=== PATIENT | male | born 1980 | race Caucasian/White ===

== ENCOUNTER 2017-10-08 04:32 | Emergency (ER) | payer BC, OTHER ==
--- NOTE | 2017-10-08 05:21 | EDM.PDOC ---
ED HPI GENERAL MEDICAL PROBLEM - General Chief Complaint: Lower Extremity Injury/Pain Stated Complaint: Numbness in leg Time Seen by Provider: 10/08/17 04:45 Source of Information: Reports: Patient History Limitations: Reports: No Limitations - History of Present Illness INITIAL COMMENTS - FREE TEXT/NARRATIVE: 37 YO WM presents to ER complaining of numbness and pain in his right leg which began immediately upon waking at 3:30am today. Pt reports it felt like his leg was asleep and then upon standing felt pain. 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 Pt denies any swelling in leg, denies any back pain, shortness of breath, palpitations or chest pain. Pt is afebrile. Onset: Sudden Duration: Hour(s): (1) Location: Reports: Lower Extremity, Right Quality: Reports: Ache Severity: Severe Improves with: Reports: None Worsens with: Reports: None Associated Symptoms: Reports: No Other Symptoms - Related Data Allergies Allergy/AdvReac Type Severity Reaction Status Date / Time acetaminophen Allergy Airway Verified 10/08/17 04:36 [From Darvocet-N] Tightness amoxicillin Allergy Anaphylactic Verified 10/08/17 04:36 Shock hydrocodone bitartrate Allergy Airway Verified 10/08/17 04:36 [From Lorcet (hydrocodone)] Tightness propoxyphene napsylate Allergy Airway Verified 10/08/17 04:36 [From Darvocet-N] Tightness Sulfa (Sulfonamide Allergy Anaphylactic Verified 10/08/17 04:36 Antibiotics) Shock venom-honey bee Allergy Airway Verified 10/08/17 04:36 [bee venom (honey bee)] Tightness Home Meds: Home Meds DULoxetine HCl [Cymbalta] 60 mg PO DAILY 02/16/16 [History] Fluticasone/Vilanterol [Breo Ellipta 200-25 Mcg INH] 1 puff INH DAILY 02/16/16 [ History] Lisinopril/Hydrochlorothiazide [Lisinopril-Hctz 20-12.5 mg Tab] 20 mg PO DAILY 02/16/16 [History] Prednisone [IJD: Prednisone] 10 mg PO DAILY 02/16/16 [History] Rivaroxaban [Xarelto] 20 mg PO DAILY 02/16/16 [History] azaTHIOprine [Imuran] 100 mg PO BID 02/16/16 [History] ARIPiprazole [Abilify] 5 mg PO DAILY 10/08/17 [History] Acetaminophen [Pain Reliever] 1,000 mg PO Q6H PRN 10/08/17 [History] Albuterol Sulfate [Proair Hfa] 2 puff PO Q4H PRN 10/08/17 [History] Albuterol [Proventil Neb Soln] 1 ampule PO QID PRN 10/08/17 [History] DULoxetine [Cymbalta] 120 mg PO DAILY 10/08/17 [History] EPINEPHrine [Epinephrine] 1 injection IM ONETIME PRN 10/08/17 [History] Furosemide [Lasix] 20 mg PO DAILY 10/08/17 [History] Magnesium Oxide 800 mg PO DAILY 10/08/17 [History] Minocycline [Minocin] 100 mg PO BID 10/08/17 [History] Multivitamin [Multivitamins] 1 tab PO DAILY 10/08/17 [History] Omeprazole 40 cap PO DAILY 10/08/17 [History] Phentermine HCl 3.7 mg PO DAILY 10/08/17 [History] Potassium Chloride 20 meq PO DAILY 10/08/17 [History] Umeclidinium [place] [Incruse Ellipta] 1 puff PO DAILY 10/08/17 [History] amLODIPine Besylate [Norvasc] 5 mg PO DAILY 10/08/17 [History] Past Medical History HEENT History: Reports: None Cardiovascular History: Reports: Blood Clots/VTE/DVT, Hypertension, Other (See Below) Other Cardiovascular History: clot 3 times in the left leg Respiratory History: Reports: Asthma, Sleep Apnea Gastrointestinal History: Reports: GERD Genitourinary History: Reports: None Musculoskeletal History: Reports: Arthritis, SLE Neurological History: Reports: Concussion, Head Trauma Psychiatric History: Reports: Depression, Panic Attack Endocrine/Metabolic History: Reports: None Hematologic History: Reports: Anticoagulation Therapy, Blood Transfusion(s) Immunologic History: Reports: SLE Oncologic (Cancer) History: Reports: None Dermatologic History: Reports: None - Infectious Disease History Infectious Disease History: Reports: Chicken Pox, Influenza, Pertussis ( Whooping Cough) - Past Surgical History Head Surgeries/Procedures: Reports: None HEENT Surgical History: Reports: None Cardiovascular Surgical History: Reports: None Respiratory Surgical History: Reports: None GI Surgical History: Reports: None Male Surgical History: Reports: None Endocrine Surgical History: Reports: None Musculoskeletal Surgical History: Reports: None Oncologic Surgical History: Reports: None Dermatological Surgical History: Reports: None Social & Family History - Tobacco Use Smoking Status *Q: Never Smoker - Recreational Drug Use Recreational Drug Use: No Review of Systems - Review of Systems Review Of Systems: See Below Constitutional: Reports: No Symptoms Eyes: Reports: No Symptoms Ears: Reports: No Symptoms Nose: Reports: No Symptoms Mouth/Throat: Reports: No Symptoms Respiratory: Reports: No Symptoms Cardiovascular: Reports: No Symptoms GI/Abdominal: Reports: No Symptoms Genitourinary: Reports: No Symptoms Musculoskeletal: Reports: Leg Pain Skin: Reports: No Symptoms Neurological: Reports: No Symptoms Psychiatric: Reports: No Symptoms ED EXAM, GENERAL - Physical Exam Exam: See Below Exam Limited By: No Limitations General Appearance: Alert, WD/WN, No Apparent Distress Head: Atraumatic, Normocephalic Neck: Normal Inspection, Supple, Non-Tender, Full Range of Motion Respiratory/Chest: No Respiratory Distress, Lungs Clear, Normal Breath Sounds, No Accessory Muscle Use, Chest Non-Tender Cardiovascular: Regular Rate, Rhythm, No Edema, No Gallop, No JVD, No Murmur, No Rub. No: Normal Peripheral Pulses Peripheral Pulses: 0: Posterior Tibial (R), Dorsalis Pedis (R), 3+: Femoral (R) GI/Abdominal: Normal Bowel Sounds, Soft, Non-Tender, No Organomegaly, No Distention, No Abnormal Bruit, No Mass Back Exam: Normal Inspection, Full Range of Motion, NT Extremities: Slow Capillary Refill, Leg Pain, Mottled Neurological: Alert, Oriented, CN II-XII Intact, Normal Cognition, Normal Gait, Normal Reflexes, No Motor/Sensory Deficits Psychiatric: Normal Affect, Normal Mood Skin Exam: Warm, Dry, Intact, Normal Color, No Rash Course - Orders/Labs/Meds Orders: Active Orders 24 hr Category Date Time Status HYDROmorphone [Dilaudid] Med 10/08/17 05:39 Once 1 mg IVPUSH ONETIME ONE Ondansetron [Zofran] Med 10/08/17 05:39 Once 4 mg IVPUSH ONETIME ONE - Re-Assessments/Exams Free Text/Narrative Re-Assessment/Exam: 10/08/17 05:36 attempted to do LYNN at bedside- positive femoral pulse but absent posterior tibial and dorsalis pedis pulses. Discussed case with Dr Eagle (Vascular surgery ) who requested pt be transferred immediately to [facility] for further evaluation and treatment. Departure - Departure Time of Disposition: 05:40 Disposition: DC/Tfer to Acute Hospital 02 Condition: Critical Clinical Impression: Vascular complications of other vessels, Peripheral vascular complications - Discharge Information Forms: ED Department Discharge, Interfacility Transfer EMTALA - My Orders Last 24 Hours: My Active Orders 10/08/17 05:39 HYDROmorphone [Dilaudid] 1 mg IVPUSH ONETIME ONE Ondansetron [Zofran] 4 mg IVPUSH ONETIME ONE - Assessment/Plan Last 24 Hours: My Active Orders 10/08/17 05:39 HYDROmorphone [Dilaudid] 1 mg IVPUSH ONETIME ONE Ondansetron [Zofran] 4 mg IVPUSH ONETIME ONE Assessment:: 1. absent lower extremity pulses in right leg below the knee suspecting vascular /arterial compromise. Plan: 1. severe right lower extremity peripheral vascular disease/compromise
[2017-10-08] MEDS ORDERED: Ondansetron 4 MG/2 ML SDV IVPUSH ONE (05:39)
[2017-10-08] MEDS ORDERED: HYDROmorphone 1 MG/ML Syringe IVPUSH ONE (05:39)
[2017-10-08 06:07] VITALS: BP 118/63
== END 2017-10-08 06:15 ==
LOC: KA.ED 04:32
DX: I99.8 Other disorder of circulatory system (principal); K21.9 Gastro-esophageal reflux disease without esophagitis; I10 Essential (primary) hypertension; Z88.1 Allergy status to other antibiotic agents; Z88.8 Allergy status to other drugs, medicaments and biological substances; Z88.5 Allergy status to narcotic agent; Z88.2 Allergy status to sulfonamides; Z91.030 Bee allergy status; Z79.899 Other long term (current) drug therapy
CPT/HCPCS: 96374; 96375; 99285; J1170; J2405

== ENCOUNTER 2017-11-28 12:12 | Inpatient (IN) | payer OTHER ==
--- NOTE | 2017-11-28 12:36 | EDM.PDOC ---
ED HPI GENERAL MEDICAL PROBLEM - General Chief Complaint: Cardiovascular Problem Stated Complaint: CHEST PAIN Time Seen by Provider: 11/28/17 12:18 Source of Information: Reports: Patient History Limitations: Reports: No Limitations - History of Present Illness INITIAL COMMENTS - FREE TEXT/NARRATIVE: Patient is a 37-year-old gentleman who presents to the emergency department this morning via EMS for complaint of chest pain. Patient was seen at [facility] for chest pain and sent to the ER. 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 Shortly after he developed left-sided chest pain that was described as pressure. Dizziness resolved pressure persisted. Patient decided to present to the clinic. At the clinic patient was found to be in atrial fibrillation and a heart rate in the 140s. Patient did have PFO procedure [address] [facility]. Patient states that the procedure was uneventful and it was a one day stay. Patient is currently on Coumadin post procedure. Patient denies shortness of breath, fever , headache, head injury, nausea, vomiting, diarrhea, taking caffeine products, or drugs. Onset: Today Onset Date: 11/28/17 Onset Time: 09:30 Duration: Minutes: Location: Reports: Chest Quality: Reports: Pressure Severity: Mild Improves with: Reports: Other (Spontaneously) Context: Reports: Other (At rest) Associated Symptoms: Reports: Diaphoresis - Related Data Allergies Allergy/AdvReac Type Severity Reaction Status Date / Time acetaminophen Allergy Airway Verified 11/28/17 12:36 [From Darvocet-N] Tightness amoxicillin Allergy Anaphylactic Verified 11/28/17 12:36 Shock hydrocodone bitartrate Allergy Airway Verified 11/28/17 12:36 [From Lorcet (hydrocodone)] Tightness propoxyphene napsylate Allergy Airway Verified 11/28/17 12:36 [From Darvocet-N] Tightness rituximab [From Rituxan] Allergy Weakness Verified 11/28/17 12:42 Sulfa (Sulfonamide Allergy Anaphylactic Verified 11/28/17 12:36 Antibiotics) Shock venom-honey bee Allergy Airway Verified 11/28/17 12:36 [bee venom (honey bee)] Tightness Home Meds: Home Meds DULoxetine HCl [Cymbalta] 60 mg PO DAILY 02/16/16 [History] Fluticasone/Vilanterol [Breo Ellipta 200-25 Mcg INH] 1 puff INH DAILY 02/16/16 [ History] Lisinopril/Hydrochlorothiazide [Lisinopril-Hctz 20-12.5 mg Tab] 20 mg PO DAILY 02/16/16 [History] Prednisone [IJD: Prednisone] 10 mg PO DAILY 02/16/16 [History] Rivaroxaban [Xarelto] 20 mg PO DAILY 02/16/16 [History] azaTHIOprine [Imuran] 100 mg PO BID 02/16/16 [History] ARIPiprazole [Abilify] 5 mg PO DAILY 10/08/17 [History] Acetaminophen [Pain Reliever] 1,000 mg PO Q6H PRN 10/08/17 [History] Albuterol Sulfate [Proair Hfa] 2 puff PO Q4H PRN 10/08/17 [History] Albuterol [Proventil Neb Soln] 1 ampule PO QID PRN 10/08/17 [History] DULoxetine [Cymbalta] 120 mg PO DAILY 10/08/17 [History] EPINEPHrine [Epinephrine] 1 injection IM ONETIME PRN 10/08/17 [History] Furosemide [Lasix] 20 mg PO DAILY 10/08/17 [History] Magnesium Oxide 800 mg PO DAILY 10/08/17 [History] Minocycline [Minocin] 100 mg PO BID 10/08/17 [History] Multivitamin [Multivitamins] 1 tab PO DAILY 10/08/17 [History] Omeprazole 40 cap PO DAILY 10/08/17 [History] Phentermine HCl 3.7 mg PO DAILY 10/08/17 [History] Potassium Chloride 20 meq PO DAILY 10/08/17 [History] Umeclidinium [place] [Incruse Ellipta] 1 puff PO DAILY 10/08/17 [History] amLODIPine Besylate [Norvasc] 5 mg PO DAILY 10/08/17 [History] Past Medical History HEENT History: Reports: None Cardiovascular History: Reports: Blood Clots/VTE/DVT, Hypertension, Other (See Below) Other Cardiovascular History: clot 3 times in the left leg Respiratory History: Reports: Asthma, Sleep Apnea Gastrointestinal History: Reports: GERD Genitourinary History: Reports: None Musculoskeletal History: Reports: Arthritis, SLE Neurological History: Reports: Concussion, Head Trauma Psychiatric History: Reports: Depression, Panic Attack Endocrine/Metabolic History: Reports: None Hematologic History: Reports: Anticoagulation Therapy, Blood Transfusion(s) Immunologic History: Reports: SLE Oncologic (Cancer) History: Reports: None Dermatologic History: Reports: None - Infectious Disease History Infectious Disease History: Reports: Chicken Pox, Influenza, Pertussis ( Whooping Cough) - Past Surgical History Head Surgeries/Procedures: Reports: None HEENT Surgical History: Reports: None Cardiovascular Surgical History: Reports: None Respiratory Surgical History: Reports: None GI Surgical History: Reports: None Male Surgical History: Reports: None Endocrine Surgical History: Reports: None Musculoskeletal Surgical History: Reports: None Oncologic Surgical History: Reports: None Dermatological Surgical History: Reports: None Social & Family History - Tobacco Use Smoking Status *Q: Never Smoker Second Hand Smoke Exposure: No - Caffeine Use Caffeine Use: Reports: Coffee, Energy Drinks, Soda - Alcohol Use Days Per Week of Alcohol Use: 1 Number of Drinks Per Day: 1 Total Drinks Per Week: 1 - Recreational Drug Use Recreational Drug Use: No ED ROS GENERAL - Review of Systems Review Of Systems: ROS reveals no pertinent complaints other than HPI. Constitutional: Reports: No Symptoms HEENT: Reports: No Symptoms Respiratory: Reports: No Symptoms Cardiovascular: Reports: Chest Pain, Lightheadedness, Palpitations Endocrine: Reports: No Symptoms GI/Abdominal: Reports: No Symptoms : Reports: No Symptoms Musculoskeletal: Reports: No Symptoms Skin: Reports: No Symptoms Neurological: Reports: No Symptoms Psychiatric: Reports: No Symptoms Hematologic/Lymphatic: Reports: No Symptoms Immunologic: Reports: No Symptoms ED EXAM, GENERAL - Physical Exam Exam: See Below Exam Limited By: No Limitations General Appearance: Alert, WD/WN, No Apparent Distress Nose: Normal Inspection, Normal Mucosa, No Blood Throat/Mouth: Normal Inspection, Normal Oropharynx, No Airway Compromise Head: Atraumatic, Normocephalic Neck: Normal Inspection. No: Carotid Bruit, Lymphadenopathy (L), Lymphadenopathy (R) Respiratory/Chest: No Respiratory Distress, Lungs Clear, Normal Breath Sounds Cardiovascular: Extra Beats, Irregularly Irregular GI/Abdominal: Normal Bowel Sounds, Soft, Non-Tender Back Exam: Normal Inspection Extremities: Normal Inspection, No Pedal Edema Neurological: Alert, Oriented, Normal Cognition Psychiatric: Normal Affect, Normal Mood Skin Exam: Warm, Dry, Intact, Normal Color, No Rash EKG INTERPRETATION EKG Date: 11/28/17 Time: 12:20 Rhythm: A-Fib Rate (Beats/Min): 153 [place]: Normal QRS: Normal ST-T: Normal QT: Normal Comparison: NA - No Prior EKG Course - Orders/Labs/Meds Orders: Active Orders 24 hr Category Date Time Status Cardiac Monitoring [RC] . DIRECTED Care 11/28/17 12:19 Ordered EKG Documentation Completion [RC] ASDIRECTED Care 11/28/17 12:22 Ordered Peripheral IV Care [RC] . DIRECTED Care 11/28/17 12:22 Ordered Chest 1V Frontal [CR] Stat Exams 11/28/17 12:20 Ordered CBC WITH AUTO DIFF [HEME] Stat Lab 11/28/17 12:18 Ordered COMPREHENSIVE METABOLIC PN,CMP [CHEM] Stat Lab 11/28/17 12:19 Ordered INR,PT,PROTHROMBIN TIME [COAG] Stat Lab 11/28/17 12:18 Ordered MAGNESIUM [CHEM] Stat Lab 11/28/17 12:18 Ordered PTT,PARTIAL THROMBOPLSTIN TIME [COAG] Stat Lab 11/28/17 12:18 Ordered TROPONIN I [CHEM] Stat Lab 11/28/17 12:18 Ordered Sodium Chloride 0.9% [Syrex Flush] Med 11/28/17 12:18 Ordered 5 ml FLUSH Q8HR PRN Peripheral IV Insertion Adult [OM.PC] Stat Oth 11/28/17 12:18 Ordered Saline Lock Insert [OM.PC] Stat Oth 11/28/17 12:18 Ordered EKG 12 Lead [EK] Stat Ther 11/28/17 12:20 Ordered Medication Orders Sodium Chloride (Syrex Flush) 5 ml FLUSH Q8HR PRN PRN Reason: Keep Vein Open Meds: Medications Generic Name Dose Route Start Last Admin Trade Name Freq PRN Reason Stop Dose Admin Sodium Chloride 5 ml 11/28/17 12:18 Syrex Flush FLUSH Q8HR PRN Keep Vein Open - Radiology Interpretation Free Text/Narrative:: Chest x-ray shows no acute cardiopulmonary process - Re-Assessments/Exams Free Text/Narrative Re-Assessment/Exam: 11/28/17 13:[address] Reyes, bias cutter helper at [facility]. Recommendation after reviewing EKGs was to start patient with 10 mg metoprolol IV for rate control. If successful, then patient will be started on 25 mg metoprolol by mouth every 6. Free Text/Narrative Re-Assessment/Exam: 11/28/17 14:10 Following administration of 5 mg metoprolol, patient heart rate did decrease to 100-105. However, blood pressure also decreased 80s over 60s. IV fluids are being administered. Heart rate increased to 120s to 130s again. 5 mg metoprolol was repeated 10 minutes later and heart rate came down to 105-110 and blood pressure again went to 80 over 60s. Discussed case with Dr. Leiva and he advised to change medication to Cardizem drip at 5 mg per hour. He will accept admission and follow patient. Departure - Departure Time of Disposition: 14:12 Disposition: Admitted As Inpatient 64 Condition: Fair Clinical Impression: New onset atrial fibrillation Referrals: PCP,Unknown [Ordering Only Provider] - Forms: ED Department Discharge - My Orders Last 24 Hours: My Active Orders 11/28/17 12:18 CBC WITH AUTO DIFF [HEME] Stat INR,PT,PROTHROMBIN TIME [COAG] Stat MAGNESIUM [CHEM] Stat PTT,PARTIAL THROMBOPLSTIN TIME [COAG] Stat TROPONIN I [CHEM] Stat Sodium Chloride 0.9% [Syrex Flush] 5 ml FLUSH Q8HR PRN Peripheral IV Insertion Adult [OM.PC] Stat Saline Lock Insert [OM.PC] Stat 11/28/17 12:19 Cardiac Monitoring [RC] . DIRECTED COMPREHENSIVE METABOLIC PN,CMP [CHEM] Stat 11/28/17 12:20 Chest 1V Frontal [CR] Stat EKG 12 Lead [EK] Stat 11/28/17 12:22 EKG Documentation Completion [RC] ASDIRECTED Peripheral IV Care [RC] . DIRECTED - Assessment/Plan Last 24 Hours: My Active Orders 11/28/17 12:18 CBC WITH AUTO DIFF [HEME] Stat INR,PT,PROTHROMBIN TIME [COAG] Stat MAGNESIUM [CHEM] Stat PTT,PARTIAL THROMBOPLSTIN TIME [COAG] Stat TROPONIN I [CHEM] Stat Sodium Chloride 0.9% [Syrex Flush] 5 ml FLUSH Q8HR PRN Peripheral IV Insertion Adult [OM.PC] Stat Saline Lock Insert [OM.PC] Stat 11/28/17 12:19 Cardiac Monitoring [RC] . DIRECTED COMPREHENSIVE METABOLIC PN,CMP [CHEM] Stat 11/28/17 12:20 Chest 1V Frontal [CR] Stat EKG 12 Lead [EK] Stat 11/28/17 12:22 EKG Documentation Completion [RC] ASDIRECTED Peripheral IV Care [RC] . DIRECTED Assessment:: Atrial fibrillation Plan: Admit inpatient to Dr. Leiva
[2017-11-28 13:13] LABS: CHLORIDE,CL 103 mmol/L (98-115); SODIUM,NA 138 mmol/L (136-145)
[2017-11-28] MEDS ORDERED: Sodium Chloride 0.9% 1,000 ML IV ONE (13:23)
[2017-11-28] MEDS ORDERED: Metoprolol Tartrate 5 MG/5 ML SDV IVPUSH ONE (13:31)
[2017-11-28] MEDS ORDERED: Diltiazem 125 MG in Sodium Chloride 0.9% 100 ML IV SCH ×2 (14:15→14:44)
[2017-11-28] MEDS ORDERED: Metoprolol Tartrate 25 MG Tab PO ONE ×2 (14:31→20:51)
[2017-11-28] MEDS ORDERED: EPINEPHrine 1:10,000 1 MG/10 ML Syringe IVPUSH PRN (15:00)
[2017-11-28] MEDS ORDERED: Nitroglycerin 0.4 MG Tab.SL SL PRN (15:00)
[2017-11-28] MEDS ORDERED: Lidocaine 2% 100 MG/5 ML Syringe IVPUSH PRN (15:00)
[2017-11-28] MEDS ORDERED: Atropine 0.1 MG/ML 10 ML Syringe IVPUSH PRN (15:00)
[2017-11-28] MEDS ORDERED: Albuterol 0.083% 2.5 MG/3 ML Neb Soln INH PRN (15:14)
[2017-11-28] MEDS ORDERED: EPINEPHrine 0.3 MG/0.3 ML Pen Autoinjector IM PRN (15:14)
[2017-11-28] MEDS ORDERED: Acetaminophen 500 MG Tab PO PRN (15:14)
[2017-11-28] MEDS ORDERED: Warfarin 5 MG Tab PO SCH ×3 (15:15→16:42)
[2017-11-28] MEDS ORDERED: Sodium Chloride 0.9% 500 ML IV SCH (15:15)
[2017-11-28] MEDS ORDERED: EPINEPHrine 1 MG/ML SDV IM PRN (16:59)
[2017-11-28] MEDS ORDERED: Warfarin 5 MG Tab PO ONE (18:00)
[2017-11-28] MEDS: Clopidogrel 75 MG Tab PO SCH (18:02)
[2017-11-29] MEDS: Omeprazole 20 MG Cap.CR PO SCH (07:42)
--- NOTE | 2017-11-29 08:00 | PN ---
11/28/2017PATIENT NAME: DOMINIC DENNIS PATIENT PROFILE: The patient is a 37-year-old gentleman who presented to the emergency room this afternoon, he is being brought by via EMS because of chest pain. The patient was seen in the [facility] for the same complaint and sent to the emergency room. 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 Shortly after that he developed left-sided chest pain that was described as pressure. The dizziness has resolved and the pressure persisted. He presented to the clinic. The patient was found to be in atrial fibrillation with a heart rate of about 140. The patient did have a patent foramen ovale procedure performed three weeks ago at [facility]. He stated that the procedure was uneventful. He has been on Coumadin after the procedure. He denies having any shortness of breath, fever, headaches, neck pain, nausea, vomiting, diarrhea. He denies taking caffeine products, but he is on phentermine. ALLERGIES: Amoxicillin, clindamycin, hydrocodone, propoxyphene, and sulfa drugs. Also Rituxan. PAST MEDICAL HISTORY: The patient's past history is positive for systemic lupus erythematosus, obstructive sleep apnea, post-thrombotic syndrome, mood disorder, long-term use of anticoagulant therapy, mild intermittent asthma, obesity, seronegative rheumatoid arthritis, nephrotic syndrome, antiphospholipid antibody syndrome, pulmonary embolism, embolism of femoral artery, history of embolectomy, and status post patent foramen ovale closure. MEDICATIONS: Include Imuran 50 mg two tablets that is 100 mg two times, Plavix 75 mg once a day, Minocin 100 mg once a day, warfarin 7 mg daily and 10 mg on Wednesdays, aspirin 81 mg chewable daily, Abilify 5 mg one tab daily, duloxetine which is Cymbalta two capsules daily 60 mg total 120 mg, potassium chloride 20 mEq once a day, lisinopril 20 mg once a day, Lasix 20 once a day, omeprazole 40 once a day, Tylenol 1000 mg up to six times a day. SURGICAL HISTORY: The patient has had an orchiectomy, colonoscopy, circumcision, vascular bypass. The patient has been followed by Rigoberto Fisher MD, pediatric pile fabric knitter at [facility]. Also, Emmanuel Perkins PA-C. The patient has had a flu vaccine in 07/28/2017. SOCIAL HISTORY: Tobacco use, never smoked. Secondhand smoke, negative ever. Caffeine no. Alcohol drinks one day of the week. Number of drinks once per day. Two two drinks per week are once a week. REVIEW OF SYSTEMS: HEAD AND NECK: The patient does complain of mild headache, 3/10. EYES, EARS, NOSE, THROAT: No complaints. NECK: No complaints. CHEST: See present history. Low-grade chest pressure. LUNGS: No complaints or dyspnea. ABDOMEN: No complaints. EXTREMITIES: No complaints. NEUROLOGIC: No complaints. UROLOGICAL: No complaints. PHYSICAL EXAMINATION: GENERAL: Reveals a very pleasant gentleman who appears to be comfortable and lying in the bed. VITAL SIGNS: His vital signs are as follows. The pulse rate is 64, blood pressure 130/68, oxygen saturation 100%, temperature 97.7. HEAD: Negative. EYES: Normal. EARS, NOSE, THROAT: Normal. NECK: Supple. Full range of motion. No midline swellings. LUNGS: Clear to percussion and auscultation. HEART: Irregular rhythm. Grade 1/6 systolic murmur at the apex. ABDOMEN: Soft. No masses. No tenderness. EXTREMITIES: Normal. NEUROLOGIC: Intact. STUDIES: Chest x-ray shows normal heart size and clear lungs. His hemoglobin is 14.6, white count 7000. His INR is 2.6, PT is 26.1. Normal electrolytes. BUN is slightly high at 29, creatinine 1.09, total protein 8.6. His troponin levels are negative. FINAL DIAGNOSES: Atrial fibrillation with a rapid ventricular response. The patient did receive IV metoprolol 5 mg x2 and also oral metoprolol tartrate 12.5 mg. He is going to receive an extra dose now. He is on a Cardizem drip. His heart rate is running between 80 and 90. He still has slight chest pain. We will repeat the troponin level at this time. We will also give an extra metoprolol dosage in a few hours if the heart rate is still rapid. We will watch his blood pressures very carefully. Continue other medications as before. Re-evaluate in the a.m. Recent PFO closure. H/O PE and DVT. See other diagnosis. /[id number]/MODL MTDD
[2017-11-29] MEDS ORDERED: Warfarin 5 MG Tab PO SCH ×2 (09:00→18:00)
[2017-11-29] MEDS: Sodium Chloride 0.9% 5 ML Syringe FLUSH PRN ×2 (09:00→20:51)
[2017-11-29] MEDS: predniSONE 10 MG Tab PO SCH (09:00)
[2017-11-29] MEDS ORDERED: Lisinopril 20 MG Tab PO SCH (09:00)
[2017-11-29] MEDS: DULoxetine 30 MG Cap PO SCH (09:01)
[2017-11-29] MEDS: ARIPiprazole 5 MG Tab PO SCH (09:01)
[2017-11-29] MEDS: Potassium Chloride 20 MEQ Tab.ER PO SCH (09:03)
[2017-11-29] MEDS: Magnesium Oxide 500 MG Tab PO SCH (09:04)
[2017-11-29] MEDS: Multivitamins with Minerals/Iron/Folic Acid/Lycopene Tab PO SCH (09:04)
[2017-11-29] MEDS: Furosemide 20 MG Tab PO SCH (09:04)
[2017-11-29] MEDS: Fluticasone/Vilanterol 200 MCG/25 MCG Inhalation Powder Kit of 14 IH SCH (09:33)
[2017-11-29] MEDS: Umeclidinium Bromide 62.5 MCG 30 Puff Inhaler IH SCH (09:37)
[2017-11-29] MEDS ORDERED: Digoxin 500 MCG/2 ML Amp IVPUSH ONE ×2 (11:26→12:53)
--- NOTE | 2017-11-29 13:32 | PN ---
11/29/2017 PATIENT NAME: DOMINIC DENNIS CHIEF COMPLAINT: Breakthrough tachycardia with some mild chest pain yesterday. BRIEF HISTORY: This 37-year-old gentleman who was initially admitted to the ED due to chest pain. He was seen at the [facility] and was sent over to the ED due to atrial fibrillation with RVR. Shortly after that he developed a left- sided chest pain that was described as somewhat of a pressure in his chest. He had some palpitations along with dizziness. He has atrial fibrillation. Heart rate in the [facility] was around 140s. The patient did have a successful PFO closure about 10 mm three weeks ago at [facility]. He had been on anticoagulation for history of DVT. He is currently on Coumadin therapy. He has been in the hospital acute care status, receiving IV medications for RVR. Update today: Throughout the night, the patient's heart rate was 80s to 90s; however, this morning on rounds, he had been having significant breakthrough at times up to 130 to 160, usually upon getting to the bathroom, however, seems to be fairly stable in fairly good rate control around 100 to 110, lying in bed. He denies any chest pain. Denies any shortness of breath. However, he has been having some low blood pressures due to beta-laurence therapy and calcium channel laurence therapy. He had a diltiazem drip last night that was discontinued due to the hypotension. PHYSICAL EXAMINATION: VITAL SIGNS: Blood pressure 91/53, mean arterial pressure is minimal at 65, asymptomatic. Temperature 98.1, heart rates vacillate between 80s and breakthrough to 130s depending on movement. Respiratory rate 16, O2 sats 98% on room air. Lungs are clear to auscultation. CV: Rapid heart rate at times. No murmur. Chest x-ray, normal heart size. Clear lungs. Skin: Significant bruising which is chronic for the patient's lower extremities. White count 7.0, hematocrit and hemoglobin normal. INR 2.7. Troponin x2 normal. BNP slightly elevated at 266. IMPRESSION: 1. Atrial fibrillation, acute. Doubtful mural thrombus due to chronic anticoagulation due to history of DVT. He has therapeutic INR. At this time, rate control strategy for acute tachycardia, beta laurence 12.5 mg p.o., metoprolol tartrate b.i.d. with holding parameters. Digoxin 125 mcg x1 now. Consider amiodarone if refractory tachycardia. Echocardiogram dated 11/09/2017 immediately after successful PFO closure, indicates ejection fraction 55%. No evidence of atrial shunt. Mildly dilated left ventricle. No left ventricular regional wall abnormalities. Trivial aortic regurgitation, moderate mitral regurgitation, left atrium normal size. No evidence of atrial shunt. No pulmonary artery hypertension. 2. History of acute DVT. He is on anticoagulation, co-benefit due to atrial fibrillation. 3. Intermittent asthma, well controlled, stable. 4. Obesity. 5. Antiphospholipid antibody syndrome. 6. History of obstructive sleep apnea. 7. History of hypertension. 8. Systemic lupus erythematosus. OVERALL PLAN: Continue with pharmacological measures to reduce heart rate and hopeful for a pharmacological cardioversion. We will consider electrical cardioversion. The patient may benefit from ongoing diltiazem and beta laurence. Possible amiodarone. Fully coagulated at this time. Monitor for any hemodynamic instability. /[id number]/MODL
[2017-11-29] MEDS: Metoprolol Tartrate 25 MG Tab PO SCH ×2 (13:42→20:50)
[2017-11-29] MEDS ORDERED: Metoprolol Tartrate 25 MG Tab PO ONE (17:00)
[2017-11-29] MEDS ORDERED: Digoxin 125 MCG Tab PO ONE (17:00)
[2017-11-29] MEDS: Clopidogrel 75 MG Tab PO SCH (18:10)
[2017-11-30] MEDS: Omeprazole 20 MG Cap.CR PO SCH (06:34)
[2017-11-30] MEDS: predniSONE 10 MG Tab PO SCH (07:56)
[2017-11-30] MEDS: Fluticasone/Vilanterol 200 MCG/25 MCG Inhalation Powder Kit of 14 IH SCH (08:31)
[2017-11-30] MEDS: Umeclidinium Bromide 62.5 MCG 30 Puff Inhaler IH SCH (08:36)
[2017-11-30] MEDS: ARIPiprazole 5 MG Tab PO SCH (09:41)
[2017-11-30] MEDS: Multivitamins with Minerals/Iron/Folic Acid/Lycopene Tab PO SCH (09:41)
[2017-11-30] MEDS: DULoxetine 30 MG Cap PO SCH (09:41)
[2017-11-30] MEDS: Potassium Chloride 20 MEQ Tab.ER PO SCH (09:42)
[2017-11-30] MEDS: Furosemide 20 MG Tab PO SCH (09:42)
[2017-11-30] MEDS: Magnesium Oxide 500 MG Tab PO SCH (09:43)
[2017-11-30] MEDS ORDERED: Metoprolol Tartrate 25 MG Tab PO SCH (11:03)
[2017-11-30] MEDS: Metoprolol Tartrate 25 MG Tab PO SCH ×3 (11:16→20:23)
[2017-11-30] MEDS ORDERED: Sodium Chloride 0.9% 500 ML IV ONE (12:00)
--- NOTE | 2017-11-30 13:16 | PN ---
11/30/2017 PATIENT NAME: DOMINIC DENNIS Update, spontaneous chemical conversion to SR afternoon of November 29, however, he has been having breakthrough sinus tachycardia, ongoing asymptomatic BP. HISTORY: A 37-year-old gentleman initially admitted to the ED due to chest pain. He was seen at [facility] due to chest pain. He was noted and assumed to have atrial fibrillation, RVR. He was sent to the [facility], admitted. He had did have some palpitations along with symptomatic dizziness. His heart rate was around 140 on admission. He did have successful PFO closure, which was quite large, approximately 10 mm about three weeks ago at [facility]. He had been on anticoagulation for history of DVT. He was actually on factor Xa inhibitor for a couple of years, however, he did have ongoing DVTs despite Xarelto, and so he had been on Coumadin thereafter. 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 Telemetry reading overnight. NSR with breakthrough ST upon minor activity PHYSICAL EXAMINATION: BMI is 34. CONSTITUTIONAL: No chest pain, slept well, no palpitations VITAL SIGNS: Blood pressure 105/68, MAP 78. CV: 80s and regular. S1, S2. LUNGS: CTA. No rales or rhonchi noted. GI: Soft. Good bowel tones. LABS: White count 7.0, hemoglobin 14.6, hematocrit 45.2. INR is 3.0. Digoxin level was low at 0.20. Troponin negative x2. BNP slightly elevated at 266. IMPRESSION: 1. Atrial fibrillation with spontaneous conversion to sinus rhythm. CHADS2- VASc score is 3, chronic anticoagulation. INR 3.0. At this time, rate control strategy, however, likely will need electrophysiology for possible ablation, especially if patient does not remain in sinus rhythm. Increase beta-laurence to 25 mg p.o. b.i.d. Holding parameters; MAP below 68. ECHO dated 11/09/2017 immediately after successful PFO closure indicating EF 55. No evidence of atrial shunting, did have some mild dilated left ventricle. No ventricular regional wall abnormalities, did have some trivial aortic regurgitation, moderate mitral regurgitation, left atrium normal. 2. History of acute deep venous thrombosis, currently on anticoagulation, co- benefit due to atrial fib history. 3. History of clotting factor disorder. 4. Intermittent asthma, well controlled and stable. 5. Obesity. 6. History of obstructive sleep apnea. 7. History of hypertension. 8. Systemic lupus erythematosus. OVERALL PLAN: Will remain in cardiac status with telemetry right now. Increase his beta laurence, titrate with holding parameters. Ambulation to every 2 hours around the briskly to assess for any AV charles response. Most likely anticipate discharge in a.m. /[id number]/MODL MTDD
[2017-11-30] MEDS: Clopidogrel 75 MG Tab PO SCH (17:54)
[2017-11-30] MEDS ORDERED: Warfarin 5 MG Tab PO SCH (18:00)
[2017-11-30] MEDS ORDERED: Warfarin 5 MG Tab PO ONE (18:00)
[2017-12-01 06:57] VITALS: BP 104/68
[2017-12-01] MEDS: Omeprazole 20 MG Cap.CR PO SCH (07:29)
[2017-12-01] MEDS: predniSONE 10 MG Tab PO SCH (07:30)
[2017-12-01 07:55] LABS: CHLORIDE,CL 105 mmol/L (98-115); SODIUM,NA 140 mmol/L (136-145)
[2017-12-01] MEDS: Fluticasone/Vilanterol 200 MCG/25 MCG Inhalation Powder Kit of 14 IH SCH (08:44)
[2017-12-01] MEDS: Umeclidinium Bromide 62.5 MCG 30 Puff Inhaler IH SCH (08:49)
[2017-12-01] MEDS: ARIPiprazole 5 MG Tab PO SCH (09:31)
[2017-12-01] MEDS: Multivitamins with Minerals/Iron/Folic Acid/Lycopene Tab PO SCH (09:31)
[2017-12-01] MEDS: DULoxetine 30 MG Cap PO SCH (09:32)
[2017-12-01] MEDS: Potassium Chloride 20 MEQ Tab.ER PO SCH (09:33)
[2017-12-01] MEDS: Magnesium Oxide 500 MG Tab PO SCH (09:33)
[2017-12-01] MEDS: Furosemide 20 MG Tab PO SCH (09:35)
[2017-12-01] MEDS: Metoprolol Tartrate 25 MG Tab PO SCH (09:36)
--- NOTE | 2017-12-01 10:41 | PCM.DCSUM1 ---
Discharge Summary - Hospital Course Free Text/Narrative:: Date of admission: 11/28/17 Date of discharge: 12/01/17 Admission diagnoses: 1. Atrial fibrillation with rapid ventricular rate 2. Systemic lupus erythematosus 3. Antiphospholipid syndrome 4. History of DVT/PE 5. Patent foramen ovale s/p closure 11/09/17 6. Mild intermittent asthma 7. Obstructive sleep apnea 8. Hypertension 9. Obesity Discharge diagnoses: 1. Atrial fibrillation s/p spontaneous conversion to sinus rhythm 2. Systemic lupus erythematosus 3. Antiphospholipid syndrome 4. History of DVT/PE 5. Patent foramen ovale s/p closure 11/09/17 6. Mild intermittent asthma 7. Obstructive sleep apnea 8. Hypertension 9. Obesity Consultations: None Procedures: None Hospital course: 37yoM with a history notable for SLE, antiphospholipid antibody syndrome, history of DVT/PE on chronic anticoagulation, and recent patent foramen ovale closure surgery, who presented to the ED on 11/28/17 via EMS after experiencing left-sided chest pain and dizziness for which he was initially evaluated at the [facility]. He was noted to be in atrial fibrillation with rate in the 140s. He received metoprolol 5mg IV x2 and started on metoprolol tartrate 12.5mg BID. Due to persistent rapid ventricular rate, he was started on a Cardizem drip, but this was subsequently discontinued due to hypotension. A dose of digoxin was given on 11/29/17 for persistent tachycardia and later that afternoon, he converted to sinus rhythm. He was titrated up on the metoprolol tartrate to 25mg BID due to tachycardia with ambulation. He was continued on warfarin anticoagulation, given his history of DVT/PE as well as a CHADS2-Vasc = 3. He was also continued on his other outpatient medications except lisinopril, given his hypotension. He was previously prescribed phentermine, but has not been taking this in several months. Notable diagnostics include echocardiogram from 11/09/17 with EF 55%, mildly dilated left ventricle, and moderate mitral regurgitation and TSH wnl. Given his conversion to sinus rhythm with adequate pulse control on current regimen for 24 hours, he was deemed ready for discharge back to home. Discharge instructions: - Continue metoprolol 25mg BID - Discontinue lisinopril - Follow-up in 3-5 days in clinic - Outpatient electrophysiology consultation - Discharge Data Discharge Date: 12/01/17 Discharge Disposition: Home, Self-Care 01 Condition: Good - Patient Instructions Activity: No Strenuous Activities Activity, Other: resume prior post-operative instructions - Discharge Plan Prescriptions/Med Rec: Metoprolol Tartrate [Lopressor] 25 mg PO BID #60 tablet Home Medications: Home Meds Fluticasone/Vilanterol [Breo Ellipta 200-25 Mcg INH] 1 puff INH DAILY 02/16/16 [ History] Prednisone [IJD: Prednisone] 10 mg PO WITHBREAKFAST 02/16/16 [History] azaTHIOprine [Imuran] 100 mg PO BID@0700,1700 02/16/16 [History] ARIPiprazole [Abilify] 5 mg PO DAILY 10/08/17 [History] Acetaminophen [Pain Reliever] 1,000 mg PO Q6H PRN 10/08/17 [History] Albuterol Sulfate [Proair Hfa] 2 puff PO Q4H PRN 10/08/17 [History] Albuterol [Proventil Neb Soln] 1 ampule PO QID PRN 10/08/17 [History] DULoxetine [Cymbalta] 120 mg PO DAILY 10/08/17 [History] EPINEPHrine [Epinephrine] 1 injection IM ONETIME PRN 10/08/17 [History] Furosemide [Lasix] 20 mg PO DAILY 10/08/17 [History] Magnesium Oxide 800 mg PO DAILY 10/08/17 [History] Minocycline [Minocin] 100 mg PO BID 10/08/17 [History] Multivitamin [Multivitamins] 1 tab PO DAILY 10/08/17 [History] Omeprazole 40 cap PO DAILY 10/08/17 [History] Potassium Chloride 20 meq PO DAILY 10/08/17 [History] Umeclidinium [place] [Incruse Ellipta] 1 puff PO DAILY 10/08/17 [History] Clopidogrel [Plavix] 75 mg PO DAILY@1800 11/28/17 [History] Warfarin Sodium 7.5 mg PO DAILY 11/28/17 [History] Warfarin Sodium 10 mg PO WEEKLY 11/28/17 [History] Metoprolol Tartrate [Lopressor] 25 mg PO BID #60 tablet 12/01/17 [Rx] Warfarin [Coumadin] 7.5 mg PO SuMoTuThFrSa@1800 tablet 12/01/17 [Rx] Warfarin [Coumadin] 10 mg PO We@1800 tablet 12/01/17 [Rx] Referrals: Ankur Patel, [employer] [Nurse Practitioner] - (schedule appointment in 3-5 days) - Discharge Summary/Plan Comment DC Time >30 min.: Yes - General Info Subjective Update: Mr. Elizabeth reports feeling well this morning. He hasn't had recurrence of chest pain, shortness of breath, palpitations, or any new concerns in the past 24 hours. He is ambulating, eating, drinking, and voiding without difficulty. He feels ready for discharge home. - Patient Data Vitals - Most Recent: Last Vital Signs Temp 36.7 C 12/01/17 06:57 Pulse 80 12/01/17 09:36 Resp 16 12/01/17 06:57 BP 104/68 12/01/17 09:36 Pulse Ox 100 12/01/17 08:49 Weight - Most Recent: 107.104 kg I&O - Last 24 hours: Intake & Output 11/30/17 12/01/17 12/01/17 22:59 06:59 14:59 Intake Total 1380 250 Output Total 1300 1500 Balance 80 -1250 Lab Results - Last 24 hrs: Laboratory Results - last 24 hr 12/01/17 12/01/17 Range/Units 07:20 07:20 PT 26.2 H (8.9-11.4) SEC INR 2.6 H (0.9-1.1) Sodium 140 (136-145) mmol/L Potassium 4.3 (3.3-5.3) mmol/L Chloride 105 (98-115) mmol/L Carbon Dioxide 26.1 (21.0-32.0) mmol/L BUN 23 (6-25) mg/dL Creatinine 0.94 (0.51-1.17) mg/dL Est Cr Clr Drug Dosing 108.94 mL/min Estimated GFR (MDRD) > 60 mL/min Glucose 91 (70-110) mg/dL Calcium 9.1 (8.7-10.3) mg/dL Med Orders - Current: Current Medications Acetaminophen (Tylenol Extra Strength) 1,000 mg PO Q6H PRN PRN Reason: Pain Last Admin: 11/28/17 21:11 Dose: 1,000 mg Albuterol (Proventil Neb Soln) 2.5 mg INH Q6HRRT PRN PRN Reason: Shortness of Breath Aripiprazole (Abilify) 5 mg PO DAILY [facility] Last Admin: 12/01/17 09:31 Dose: 5 mg Atropine Sulfate (Atropine 0.1 Mg/Ml) 0 mg IVPUSH ASDIRECTED PRN PRN Reason: Heart Azathioprine (Imuran) 100 mg PO BID@0700,1700 [facility] Last Admin: 12/01/17 06:29 Dose: 100 mg Clopidogrel Bisulfate (Plavix) 75 mg PO DAILY@1800 [facility] Last Admin: 11/30/17 17:54 Dose: 75 mg Duloxetine HCl (Cymbalta) 120 mg PO DAILY [facility] Last Admin: 12/01/17 09:32 Dose: 120 mg Epinephrine HCl (Epinephrine 1:10,000) 1 mg IVPUSH ASDIRECTED PRN PRN Reason: Heart Epinephrine HCl (Adrenalin) 0.3 mg IM ONETIME PRN PRN Reason: Allergies Furosemide (Lasix) 20 mg PO DAILY [facility] Last Admin: 12/01/17 09:35 Dose: 20 mg Lidocaine HCl (Xylocaine 2%) 0 mg IVPUSH ASDIRECTED PRN PRN Reason: Heart Lisinopril (Prinivil) 20 mg PO DAILY [facility] Last Admin: 11/29/17 09:11 Dose: Not Given Magnesium Oxide (Magnesium Oxide) 750 mg PO DAILY [facility] Last Admin: 12/01/17 09:33 Dose: 750 mg Metoprolol Tartrate (Lopressor) 25 mg PO BID [facility] Last Admin: 12/01/17 09:36 Dose: 25 mg Minocycline HCl (Minocin) 100 mg PO BID [facility] Last Admin: 12/01/17 09:34 Dose: 100 mg Multivitamins/Minerals (Centrum) 1 tab PO DAILY [facility] Last Admin: 12/01/17 09:31 Dose: 1 tab Nitroglycerin (Nitrostat) 0.4 mg SL ASDIRECTED PRN PRN Reason: Heart Omeprazole (Omeprazole) 40 mg PO ACBREAKFAST [facility] Last Admin: 12/01/17 07:29 Dose: 40 mg Potassium Chloride (Klor-Con M20) 20 meq PO DAILY [facility] Last Admin: 12/01/17 09:33 Dose: 20 meq Prednisone (Prednisone) 10 mg PO WITHBREAKFAST [facility] Last Admin: 12/01/17 07:30 Dose: 10 mg Sodium Chloride (Syrex Flush) 5 ml FLUSH Q8HR PRN PRN Reason: Keep Vein Open Last Admin: 11/29/17 20:51 Dose: 5 ml Warfarin Sodium (Coumadin) 7.5 mg PO SuMoTuThFrSa@1800 [facility] Last Admin: 11/30/17 17:54 Dose: 7.5 mg Warfarin Sodium (Coumadin) 10 mg PO We@1800 [facility] Last Admin: 11/29/17 18:12 Dose: 10 mg Discontinued Medications Digoxin (Lanoxin) 125 mcg IVPUSH ONETIME ONE Stop: 11/29/17 11:27 Last Admin: 11/29/17 12:54 Dose: Not Given Digoxin (Lanoxin) 500 mcg IVPUSH ONETIME ONE Stop: 11/29/17 12:54 Last Admin: 11/29/17 13:04 Dose: 500 mcg Digoxin (Lanoxin) 250 mcg PO ONETIME ONE Stop: 11/29/17 17:01 Last Admin: 11/29/17 17:09 Dose: 250 mcg Epinephrine HCl (Epipen) 0.3 mg IM ONETIME PRN PRN Reason: Allergies Sodium Chloride (Normal Saline) 1,000 mls @ 999 mls/hr IV .BOLUS ONE Stop: 11/28/17 14:23 Last Admin: 11/28/17 13:28 Dose: 999 mls/hr Diltiazem HCl 125 mg/ Sodium (Chloride) 125 mls @ 5 mls/hr IV TITRATE [facility] PRN Reason: 5 MG/HR Diltiazem HCl 125 mg/ Sodium (Chloride) 125 mls @ 5 mls/hr IV TITRATE [facility]; 5 MG /HR PRN Reason: Protocol Last Infusion: 11/28/17 20:15 Dose: 3 mg/hr, 3 mls/hr Sodium Chloride (Normal Saline) 500 mls @ 25 mls/hr IV ASDIRECTED [facility] Last Admin: 11/28/17 18:09 Dose: 25 mls/hr Sodium Chloride (Normal Saline) 500 mls @ 250 mls/hr IV .BOLUS ONE Stop: 11/30/17 13:59 Last Admin: 11/30/17 12:21 Dose: 250 mls/hr Metoprolol Tartrate (Lopressor) 10 mg IVPUSH ONETIME ONE Stop: 11/28/17 13:32 Last Admin: 11/28/17 13:40 Dose: 5 mg Metoprolol Tartrate (Lopressor) 12.5 mg PO ONETIME ONE Stop: 11/28/17 14:32 Last Admin: 11/28/17 15:19 Dose: 12.5 mg Metoprolol Tartrate (Lopressor) 12.5 mg PO ONETIME ONE Stop: 11/28/17 20:52 Last Admin: 11/28/17 21:12 Dose: 12.5 mg Metoprolol Tartrate (Lopressor) 12.5 mg PO BID [facility] Last Admin: 11/30/17 11:16 Dose: Not Given Metoprolol Tartrate (Lopressor) 12.5 mg PO ONETIME ONE Stop: 11/29/17 17:01 Last Admin: 11/29/17 17:08 Dose: 12.5 mg Metoprolol Tartrate (Lopressor) 25 mg PO DAILY [facility] Last Admin: 11/30/17 13:12 Dose: Not Given Warfarin Sodium (Coumadin) 7.5 mg PO DAILY [facility] Warfarin Sodium (Coumadin) 10 mg PO WEEKLY [facility] Warfarin Sodium (Coumadin) 7.5 mg PO ONETIME [facility] Warfarin Sodium (Coumadin) 10 mg PO ONETIME [facility] Warfarin Sodium (Coumadin) 10 mg PO ONETIME@1800 ONE Stop: 11/28/17 18:01 Last Admin: 11/28/17 18:02 Dose: 10 mg Warfarin Sodium (Coumadin) 5 mg PO ONETIME ONE Stop: 11/30/17 18:01 - Exam Physical Findings Comments:: GENERAL: Well-appearing adult male sitting on hospital bed in no acute distress. HEENT: Normocephalic, atraumatic. Conjunctiva clear. Nares patent without discharge. Mucous membranes moist. NECK: Supple, no masses. CV: Regular rate and rhythm. 2+ radial pulses. PULMONARY: Normal effort, clear to auscultation bilaterally, no wheezes, rales, or rhonchi. ABDOMEN: Positive bowel sounds, soft, nontender, nondistended. EXTREMITIES: Trace ankle edema. MUSCULOSKELETAL: Moves all extremities well. NEUROLOGICAL: No obvious deficits. DERMATOLOGIC: No rashes or suspicious lesions in exposed areas. PSYCHIATRIC: Alert, interactive, appropriate affect. *Q Meaningful Use (DIS) - VTE *Q VTE Criteria *Q: - Stroke *Q Stroke Criteria *Q: - AMI *Q AMI Criteria *Q:
== END 2017-12-01 10:50 | disposition home or self-care (01) | DRG 309 ==
LOC: KA.ED 12:12 → KA.MS 14:15
PROVIDERS: ADMIT Physician Assistant Surgical; ATTEND Family Medicine
DX: I48.91 Unspecified atrial fibrillation (principal); D68.61 Antiphospholipid syndrome; M32.9 Systemic lupus erythematosus, unspecified; J45.909 Unspecified asthma, uncomplicated; G47.33 Obstructive sleep apnea (adult) (pediatric); I10 Essential (primary) hypertension; E66.9 Obesity, unspecified; F32.9 Major depressive disorder, single episode, unspecified; Z79.899 Other long term (current) drug therapy; Z68.34 Body mass index [BMI] 34.0-34.9, adult; Z79.01 Long term (current) use of anticoagulants; Z88.8 Allergy status to other drugs, medicaments and biological substances; Z98.890 Other specified postprocedural states; Z86.718 Personal history of other venous thrombosis and embolism
CPT/HCPCS: 36415; 36416; 71045; 80048; 80053; 80162; 83735; 83880; 84443; 84484; 85025; 85610; 85730; 93005; 94640-76; 96374; 99285; A9270-GY; J1160; J3490; J7030; J7040; J7050; J7500

== ENCOUNTER 2017-12-03 15:48 | Emergency (ER) | payer OTHER ==
[2017-12-03 16:11] VITALS: BP 133/79
[2017-12-03] MEDS ORDERED: Aspirin 81 MG Tab.Chew PO ONE (16:15)
[2017-12-03] MEDS ORDERED: Aspirin 81 MG Tab.Chew ONE (16:15)
[2017-12-03] MEDS ORDERED: Morphine 2 MG/ML Syringe ONE (16:15)
[2017-12-03] MEDS ORDERED: Morphine 2 MG/ML Syringe IVPUSH ONE (16:15)
--- NOTE | 2017-12-03 16:27 | EDM.PDOC ---
ED HPI GENERAL MEDICAL PROBLEM - General Chief Complaint: Chest Pain Stated Complaint: CHEST PAIN, SOB Time Seen by Provider: 12/03/17 16:00 Source of Information: Reports: Patient, Old Records, RN - History of Present Illness INITIAL COMMENTS - FREE TEXT/NARRATIVE: 37-year-old male presents today with complaints of increasing chest pain since 11:00 this after this morning. Patient pain is 5 out of 10 he describes characteristic pressure radiates to his shoulder, extremities are cool but this is unusual for symptoms began about 11:00 did not take anything for this he does note shortness of breath in addition. He denies any pain radiating to his jaw, no visual or speech complaints. No nausea or vomiting. No palpitations, no headache, no syncopal episode. Symptoms are constant. Patient was recently discharged from [facility] he is followed along by [place] care provider at the [place] and [place]. He had a new onset of atrial fibrillation with RVR and was diagnosed with a DVT in his right leg. He also has history of systemic lupus erythematous and I phospholipid syndrome and a patent foramen ovale L status post closure November 09, 2017. Mild intermittent asthma obstructive sleep apnea hypertension. He is currently taking Plavix 75 mg by mouth daily warfarin 7.5 mg by mouth daily and warfarin 10 mg by mouth weekly he is also on Lopressor 25 mg by mouth twice a day. Lisinopril was placed on hold due to hypotension during his hospital stay. Patient on arrival of the labs are drawn EKG shows a normal sinus rhythm possible inferior posterior infarct which is unchanged from his prior EKG from November 29. IV was placed and he was given 2 mg of morphine. He reports his pain is improved now to 1/10. CT scan of the chest was ordered as recent surgery and history of DVT. Onset: Today Onset Date: 12/03/17 Onset Time: 11:00 Duration: Hour(s):, Constant Location: Reports: Chest, Upper Extremity, Left Quality: Reports: Pressure Severity: Moderate (5/10) Improves with: Reports: None Worsens with: Reports: None Associated Symptoms: Reports: Chest Pain, Shortness of Breath. Denies: Cough, Diaphoresis, Fever/Chills, Headaches, Nausea/Vomiting, Syncope, Weakness Mid-Sternal Chest Pain Score (Numeric/FACES): 5 - Related Data Allergies Allergy/AdvReac Type Severity Reaction Status Date / Time amoxicillin Allergy Anaphylactic Verified 12/03/17 16:11 Shock hydrocodone bitartrate Allergy Airway Verified 12/03/17 16:11 [From Lorcet (hydrocodone)] Tightness propoxyphene napsylate Allergy Airway Verified 12/03/17 16:11 [From Darvocet-N] Tightness rituximab [From Rituxan] Allergy Weakness Verified 12/03/17 16:11 Sulfa (Sulfonamide Allergy Anaphylactic Verified 12/03/17 16:11 Antibiotics) Shock venom-honey bee Allergy Airway Verified 12/03/17 16:11 [bee venom (honey bee)] Tightness Home Meds: Home Meds Fluticasone/Vilanterol [Breo Ellipta 200-25 Mcg INH] 1 puff INH DAILY 02/16/16 [ History] Prednisone [IJD: Prednisone] 10 mg PO WITHBREAKFAST 02/16/16 [History] azaTHIOprine [Imuran] 100 mg PO BID@0700,1700 02/16/16 [History] ARIPiprazole [Abilify] 5 mg PO DAILY 10/08/17 [History] Acetaminophen [Pain Reliever] 1,000 mg PO Q6H PRN 10/08/17 [History] Albuterol Sulfate [Proair Hfa] 2 puff PO Q4H PRN 10/08/17 [History] Albuterol [Proventil Neb Soln] 1 ampule PO QID PRN 10/08/17 [History] DULoxetine [Cymbalta] 120 mg PO DAILY 10/08/17 [History] EPINEPHrine [Epinephrine] 1 injection IM ONETIME PRN 10/08/17 [History] Furosemide [Lasix] 20 mg PO DAILY 10/08/17 [History] Magnesium Oxide 800 mg PO DAILY 10/08/17 [History] Minocycline [Minocin] 100 mg PO BID 10/08/17 [History] Multivitamin [Multivitamins] 1 tab PO DAILY 10/08/17 [History] Omeprazole 40 cap PO DAILY 10/08/17 [History] Potassium Chloride 20 meq PO DAILY 10/08/17 [History] Umeclidinium [place] [Incruse Ellipta] 1 puff PO DAILY 10/08/17 [History] Clopidogrel [Plavix] 75 mg PO DAILY@1800 11/28/17 [History] Metoprolol Tartrate [Lopressor] 25 mg PO BID #60 tablet 12/01/17 [Rx] Warfarin [Coumadin] 7.5 mg PO SuMoTuThFrSa@1800 tablet 12/01/17 [Rx] Warfarin [Coumadin] 10 mg PO We@1800 tablet 12/01/17 [Rx] Past Medical History HEENT History: Reports: None Cardiovascular History: Reports: Blood Clots/VTE/DVT, Hypertension, Other (See Below) Other Cardiovascular History: clot 3 times in the left leg Respiratory History: Reports: Asthma, Sleep Apnea Gastrointestinal History: Reports: GERD Genitourinary History: Reports: None Musculoskeletal History: Reports: Arthritis, SLE Neurological History: Reports: Concussion, Head Trauma Psychiatric History: Reports: Depression, Panic Attack Endocrine/Metabolic History: Reports: None Hematologic History: Reports: Anticoagulation Therapy, Blood Transfusion(s) Immunologic History: Reports: SLE Oncologic (Cancer) History: Reports: None Dermatologic History: Reports: None - Infectious Disease History Infectious Disease History: Reports: Chicken Pox, Influenza, Pertussis ( Whooping Cough) - Past Surgical History Head Surgeries/Procedures: Reports: None HEENT Surgical History: Reports: None Cardiovascular Surgical History: Reports: None Respiratory Surgical History: Reports: None GI Surgical History: Reports: None Male Surgical History: Reports: None Endocrine Surgical History: Reports: None Musculoskeletal Surgical History: Reports: None Oncologic Surgical History: Reports: None Dermatological Surgical History: Reports: None Social & Family History - Family History Cardiac: Reports: Hypertension, [place] Musculoskeletal: Reports: SLE Other Musculoskeletal Family History: brother also has lupus - Tobacco Use Smoking Status *Q: Never Smoker Second Hand Smoke Exposure: No - Caffeine Use Caffeine Use: Reports: Coffee, Energy Drinks, Soda - Alcohol Use Days Per Week of Alcohol Use: 1 Number of Drinks Per Day: 1 Total Drinks Per Week: 1 - Recreational Drug Use Recreational Drug Use: No ED ROS GENERAL - Review of Systems Review Of Systems: See Below Constitutional: Denies: Fever, Diaphoresis HEENT: Reports: Glasses. Denies: Throat Pain, Vertigo Respiratory: Reports: Shortness of Breath. Denies: Wheezing, Cough Cardiovascular: Reports: Chest Pain, Blood Pressure Problem, Edema. Denies: Palpitations, Syncope Endocrine: Reports: No Symptoms GI/Abdominal: Reports: No Symptoms : Reports: No Symptoms Musculoskeletal: Reports: Arm Pain, Back Pain. Denies: Neck Pain, Shoulder Pain Skin: Reports: Pallor (lower legs) Neurological: Reports: No Symptoms Psychiatric: Reports: No Symptoms Hematologic/Lymphatic: Reports: Easy Bleeding, Easy Bruising ED EXAM, GENERAL - Physical Exam Exam: See Below Exam Limited By: No Limitations General Appearance: Alert, WD/WN, No Apparent Distress Eye Exam: Bilateral Eye: EOMI, PERRL Throat/Mouth: Normal Voice, No Airway Compromise Head: Atraumatic Neck: Normal Inspection Respiratory/Chest: No Respiratory Distress, Lungs Clear, Normal Breath Sounds, No Accessory Muscle Use. No: Respiratory Distress, Crackles, Rales, Wheezing Cardiovascular: Regular Rate, Rhythm Peripheral Pulses: 1+: Dorsalis Pedis (L), Dorsalis Pedis (R), 2+: Carotid (L), Carotid (R), Radial (R), Femoral (L) GI/Abdominal: Normal Bowel Sounds, Soft Back Exam: No: CVA Tenderness (L), CVA Tenderness (R) Extremities: No Pedal Edema, Slow Capillary Refill, Pallor (bilateral lower legs ) Neurological: Alert, Oriented, CN II-XII Intact, Normal Cognition Psychiatric: Normal Mood, Flat Affect Skin Exam: Cool, Pallor (lower legs) Lymphatic: No Adenopathy EKG INTERPRETATION EKG Date: 12/03/17 Rhythm: NSR [place]: Normal P-Wave: Present QRS: Normal ST-T: Normal QT: Normal Comparison: No Change (11/29/17) EKG Interpretation Comments: Normal sinus rhythm, inferior posterior infarct age-indeterminate, abnormal ECG Course - Vital Signs Last Recorded V/S: Last Vital Signs Temp 98.7 F 12/03/17 16:06 Pulse 98 12/03/17 16:06 Resp 17 12/03/17 16:06 BP 133/79 12/03/17 16:06 Pulse Ox 99 12/03/17 16:06 - Orders/Labs/Meds Orders: Active Orders 24 hr Category Date Time Status EKG Documentation Completion [RC] ASDIRECTED Care 12/03/17 15:53 Active Chest w Cont [CT] Stat Exams 12/03/17 16:17 Taken Sodium Chloride 0.9% [Normal Saline] 50 ml Med 12/03/17 16:30 Active IV ASDIRECTED EKG 12 Lead [EK] Routine Ther 12/03/17 15:52 Ordered Medication Orders Sodium Chloride (Normal Saline) 50 mls @ 200 mls/hr IV ASDIRECTED LEONILA Last Admin: 12/03/17 16:54 Dose: 200 mls/hr Labs: Laboratory Tests 12/03/17 12/03/17 12/03/17 Range/Units 16:10 16:10 16:10 WBC 6.8 (5.0-10.0) 10^3/uL RBC 5.14 (4.50-6.00) 10^6/uL Hgb 14.1 (13.0-17.0) g/dL Hct 42.8 (40.0-52.0) % MCV 83.3 (82.0-92.0) fL MCH 27.4 (27.0-31.0) pg MCHC 32.9 (32.0-36.0) g/dL RDW 15.0 H (11.5-14.5) % Plt Count 253 (150-300) 10^3/uL MPV 8.0 (7.4-10.4) fL Neut % (Auto) 81.7 H (50.0-70.0) % Lymph % (Auto) 11.8 L (20.0-40.0) % [place] % (Auto) 5.9 (2.0-8.0) % Eos % (Auto) 0.0 L (1.0-3.0) % Baso % (Auto) 0.6 (0.0-1.0) % Neut # (Auto) 5.6 (2.5-7.0) 10^3/uL Lymph # (Auto) 0.8 L (1.0-4.0) 10^3/uL [place] # (Auto) 0.4 (0.1-0.8) 10^3/uL Eos # (Auto) 0.0 L (0.1-0.3) 10^3/uL Baso # (Auto) 0.0 (0.0-0.1) 10^3/uL PT 23.0 H (8.9-11.4) SEC INR 2.3 H (0.9-1.1) Sodium 143 (136-145) mmol/L Potassium 5.0 (3.3-5.3) mmol/L Chloride 107 (98-115) mmol/L Carbon Dioxide 28.5 (21.0-32.0) mmol/L BUN 23 (6-25) mg/dL Creatinine 1.20 H (0.51-1.17) mg/dL Est Cr Clr Drug Dosing 85.34 mL/min Estimated GFR (MDRD) > 60 mL/min Glucose 114 H (70-110) mg/dL Calcium 9.0 (8.7-10.3) mg/dL Troponin I 0.04 (0.00-0.070) ng/mL Meds: Medications Generic Name Dose Route Start Last Admin Trade Name Freq PRN Reason Stop Dose Admin Sodium Chloride 50 mls @ 200 mls/hr 12/03/17 16:30 12/03/17 16:54 Normal Saline IV 200 mls/hr ASDIRECTED LEONILA Administration Discontinued Medications Generic Name Dose Route Start Last Admin Trade Name Freq PRN Reason Stop Dose Admin Aspirin 324 mg 12/03/17 16:15 12/03/17 16:14 Aspirin PO 12/03/17 16:16 324 mg ONETIME ONE Administration Aspirin Confirm 12/03/17 16:15 12/03/17 16:26 Aspirin Administered 12/03/17 16:16 Not Given Dose 324 mg .ROUTE .STK-MED ONE Iopamidol 75 ml 12/03/17 16:29 12/03/17 16:54 Isovue-300 (61%) IV 12/03/17 16:30 75 ml ONETIME ONE Administration Morphine Sulfate 2 mg 12/03/17 16:15 12/03/17 16:27 Morphine IVPUSH 12/03/17 16:16 2 mg ONETIME ONE Administration Morphine Sulfate Confirm 12/03/17 16:15 12/03/17 16:26 Morphine Administered 12/03/17 16:16 Not Given Dose 2 mg .ROUTE .STK-MED ONE - Radiology Interpretation Free Text/Narrative:: 12/03/17 CT the chest with IV contrast Findings: Lungs: Small amount of segmental atelectasis in both lung bases. No pneumonia,, edema, or pneumothorax Heart and great vessels: Unremarkable Mediastinum and lymphatics: No mediastinal or hilar lymphadenopathy. Upper abdominal organs: Splenomegaly, spleen measures approximately 17 cm in AP length. Liver demonstrates changes in diffuse steatosis. Other structures are unremarkable. Spleen size has not changed from prior scan. Bones: Bones are diffusely demineralized. Chronic appearing mild compression deformity at T11. Impression: No acute findings in the chest diffuse hepatic steatosis and splenomegaly. - Re-Assessments/Exams Free Text/Narrative Re-Assessment/Exam: 12/03/17 17:49 Pain is now resolved he has no complaints. He has no shortness of breath, no chest pain. Departure - Departure Time of Disposition: 17:53 Disposition: Home, Self-Care 01 Condition: Good Clinical Impression: Chest pain of uncertain etiology Instructions: Chest Pain Observation, Angina Pectoris, [id number] Referrals: Arabella Chan MD [Primary Care Provider] - Forms: ED Department Discharge Additional Instructions: 1. Rest 2. Return to the emergency room chest pain,shortness of breath, arm pain, numbness, jaw pain, severe headache recurs without relief of your medications since 5 minutes. 3. Keep your follow-up appointment with primary care Yadi and tobacco buyer at the end of the month. - My Orders Last 24 Hours: My Active Orders 12/03/17 15:52 EKG 12 Lead [EK] Routine 12/03/17 15:53 EKG Documentation Completion [RC] ASDIRECTED 12/03/17 16:17 Chest w Cont [CT] Stat 12/03/17 16:30 Sodium Chloride 0.9% [Normal Saline] 50 ml IV ASDIRECTED - Assessment/Plan Last 24 Hours: My Active Orders 12/03/17 15:52 EKG 12 Lead [EK] Routine 12/03/17 15:53 EKG Documentation Completion [RC] ASDIRECTED 12/03/17 16:17 Chest w Cont [CT] Stat 12/03/17 16:30 Sodium Chloride 0.9% [Normal Saline] 50 ml IV ASDIRECTED Assessment:: Chest pain resolved History of right DVT lower extremity, CT scan is negative for pulmonary embolism Splenomegaly unchanged from prior CT scan History of atrial fibrillation with RVR currently in normal sinus rhythm Anticoagulation therapy Plan: 1. Rest 2. Return to the emergency room chest pain,shortness of breath, arm pain, numbness, jaw pain, severe headache recurs without relief of your medications since 5 minutes. 3. Keep your follow-up appointment with primary care Yadi and tobacco buyer at the end of the month.
[2017-12-03] MEDS ORDERED: Iopamidol 612 MG/ML 75 ML Bottle IV ONE (16:29)
[2017-12-03] MEDS ORDERED: Sodium Chloride 0.9% 50 ML IV SCH (16:30)
[2017-12-03 16:48] LABS: CHLORIDE,CL 107 mmol/L (98-115); SODIUM,NA 143 mmol/L (136-145)
== END 2017-12-03 17:50 | disposition home or self-care (01) ==
LOC: KA.ED 15:48
DX: R07.9 Chest pain, unspecified (principal); I10 Essential (primary) hypertension; J45.909 Unspecified asthma, uncomplicated; K21.9 Gastro-esophageal reflux disease without esophagitis; Z88.1 Allergy status to other antibiotic agents; Z88.6 Allergy status to analgesic agent; Z88.2 Allergy status to sulfonamides; Z91.030 Bee allergy status; Z79.899 Other long term (current) drug therapy; Z79.01 Long term (current) use of anticoagulants; Z86.718 Personal history of other venous thrombosis and embolism
CPT/HCPCS: 36415; 71260; 80048; 84484; 85025; 85610; 96374; 99285; A9270-GY; J2270; J7050; Q9967

== ENCOUNTER 2017-12-06 12:17 | Emergency (ER) | payer OTHER ==
[2017-12-06] MEDS: Nitroglycerin 0.4 MG Tab.SL SL ONE (12:25)
--- NOTE | 2017-12-06 12:59 | EDM.PDOC ---
ED HPI GENERAL MEDICAL PROBLEM - General Stated Complaint: CHEST PAIN/SOB Time Seen by Provider: 12/06/17 12:35 Source of Information: Reports: Patient History Limitations: Reports: No Limitations - History of Present Illness INITIAL COMMENTS - FREE TEXT/NARRATIVE: Patient presents with pain in upper chest slightly to left of sternum. It is exacerbated quite significantly with coughing but nothing else. 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 He took four 81 mg aspirin and the pain went away. A couple hours later the pain returned so he came to ER. The pain had been present about 45 minutes when he was given nitro sl, and he says the pain went away about 1.5 minutes after. He has been painfree except with coughing since the nitro x 1. He had the same pain 3 days ago, came to the ER and saw another provider; got a chest CT, EKG and was discharged to home after pain resolved; he followed up with his PCP yesterday as directed. Eight days ago, during a clinic visit he was found to have A Fib with RVR. He was admitted and was given Cardizem and Digoxin; he converted to NSR. 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 He tried Xarelto but developed a DVT so was switched back to warfarin; he has never had a clot develop while therapeutic on warfarin. Two months ago he was found to have a patent foramen ovale (PFO) which was surgically repaired one month ago at [facility] in [place]. Since then he has been on Plavix in addition to his warfarin. No history of SD. Left Mid-Anterior Chest Pain Score (Numeric/FACES): 4 - Related Data Allergies Allergy/AdvReac Type Severity Reaction Status Date / Time amoxicillin Allergy Anaphylactic Verified 12/06/17 14:02 Shock hydrocodone bitartrate Allergy Airway Verified 12/06/17 14:02 [From Lorcet (hydrocodone)] Tightness propoxyphene napsylate Allergy Airway Verified 12/06/17 14:02 [From Darvocet-N] Tightness rituximab [From Rituxan] Allergy Weakness Verified 12/06/17 14:02 Sulfa (Sulfonamide Allergy Anaphylactic Verified 12/06/17 14:02 Antibiotics) Shock venom-honey bee Allergy Airway Verified 12/06/17 14:02 [bee venom (honey bee)] Tightness Home Meds: Home Meds Fluticasone/Vilanterol [Breo Ellipta 200-25 Mcg INH] 1 puff INH DAILY 02/16/16 [ History] Prednisone [IJD: Prednisone] 10 mg PO WITHBREAKFAST 02/16/16 [History] azaTHIOprine [Imuran] 100 mg PO BID@0700,1700 02/16/16 [History] ARIPiprazole [Abilify] 5 mg PO DAILY 10/08/17 [History] Acetaminophen [Pain Reliever] 1,000 mg PO Q6H PRN 10/08/17 [History] Albuterol Sulfate [Proair Hfa] 2 puff PO Q4H PRN 10/08/17 [History] Albuterol [Proventil Neb Soln] 1 ampule PO QID PRN 10/08/17 [History] DULoxetine [Cymbalta] 120 mg PO DAILY 10/08/17 [History] EPINEPHrine [Epinephrine] 1 injection IM ONETIME PRN 10/08/17 [History] Furosemide [Lasix] 20 mg PO DAILY 10/08/17 [History] Magnesium Oxide 800 mg PO DAILY 10/08/17 [History] Minocycline [Minocin] 100 mg PO BID 10/08/17 [History] Multivitamin [Multivitamins] 1 tab PO DAILY 10/08/17 [History] Omeprazole 40 cap PO DAILY 10/08/17 [History] Potassium Chloride 20 meq PO DAILY 10/08/17 [History] Umeclidinium [place] [Incruse Ellipta] 1 puff PO DAILY 10/08/17 [History] Clopidogrel [Plavix] 75 mg PO DAILY@1800 11/28/17 [History] Metoprolol Tartrate [Lopressor] 25 mg PO BID #60 tablet 12/01/17 [Rx] Warfarin [Coumadin] 7.5 mg PO SuMoTuThFrSa@1800 tablet 12/01/17 [Rx] Warfarin [Coumadin] 10 mg PO We@1800 tablet 12/01/17 [Rx] Past Medical History HEENT History: Reports: None Cardiovascular History: Reports: Blood Clots/VTE/DVT, Hypertension, Other (See Below) Other Cardiovascular History: clot 3 times in the left leg Respiratory History: Reports: Asthma, Sleep Apnea Gastrointestinal History: Reports: GERD Genitourinary History: Reports: None Musculoskeletal History: Reports: Arthritis, SLE Neurological History: Reports: Concussion, Head Trauma Psychiatric History: Reports: Depression, Panic Attack Endocrine/Metabolic History: Reports: None Hematologic History: Reports: Anticoagulation Therapy, Blood Transfusion(s) Immunologic History: Reports: SLE Oncologic (Cancer) History: Reports: None Dermatologic History: Reports: None - Infectious Disease History Infectious Disease History: Reports: Chicken Pox, Influenza, Pertussis ( Whooping Cough) - Past Surgical History Head Surgeries/Procedures: Reports: None HEENT Surgical History: Reports: None Cardiovascular Surgical History: Reports: None Respiratory Surgical History: Reports: None GI Surgical History: Reports: None Male Surgical History: Reports: None Endocrine Surgical History: Reports: None Musculoskeletal Surgical History: Reports: None Oncologic Surgical History: Reports: None Dermatological Surgical History: Reports: None Social & Family History - Family History Cardiac: Reports: Hypertension, [place] Musculoskeletal: Reports: SLE Other Musculoskeletal Family History: brother also has lupus - Tobacco Use Smoking Status *Q: Never Smoker Second Hand Smoke Exposure: No - Caffeine Use Caffeine Use: Reports: Coffee, Energy Drinks, Soda - Alcohol Use Days Per Week of Alcohol Use: 1 Number of Drinks Per Day: 1 Total Drinks Per Week: 1 - Recreational Drug Use Recreational Drug Use: No ED ROS GENERAL - Review of Systems Review Of Systems: See Below Constitutional: Denies: Fever, Weakness HEENT: Denies: Ear Pain, Throat Pain, Vision Change Respiratory: Reports: Cough. Denies: Shortness of Breath Cardiovascular: Reports: Chest Pain. Denies: Lightheadedness, Syncope Endocrine: Reports: No Symptoms GI/Abdominal: Denies: Abdominal Pain, Diarrhea, Decreased Appetite, Nausea, Vomiting : Denies: Flank Pain Musculoskeletal: Denies: Neck Pain, Shoulder Pain, Arm Pain, Back Pain Skin: Denies: Cyanosis, Jaundice, Mottled, Pallor, Diaphoresis Neurological: Denies: Confusion, Dizziness, Headache, Seizure, Syncope, Trouble Speaking, Difficulty Walking Psychiatric: Denies: Agitation, Anxiety, Confusion Hematologic/Lymphatic: Reports: Easy Bleeding (chronic anti-coagulation therapy) ED EXAM, GENERAL - Physical Exam Exam: See Below Exam Limited By: No Limitations General Appearance: Alert, WD/WN, No Apparent Distress. No: Anxious, Lethargic , Obese Eye Exam: Bilateral Eye: EOMI, Normal Inspection, PERRL Ears: Normal External Exam, Hearing Grossly Normal Nose: Normal Inspection, No Blood Throat/Mouth: Normal Inspection, Normal Lips, Normal Voice, No Airway Compromise Head: Atraumatic, Normocephalic Neck: Normal Inspection, Supple, Non-Tender, Full Range of Motion Respiratory/Chest: No Respiratory Distress, Lungs Clear, Normal Breath Sounds, No Accessory Muscle Use, Chest Non-Tender Cardiovascular: Regular Rate, Rhythm, No Edema, No Gallop, No JVD, No Murmur, No Rub GI/Abdominal: Normal Bowel Sounds, Soft, Non-Tender, No Organomegaly, No Distention Back Exam: Normal Inspection, Full Range of Motion. No: CVA Tenderness (L), CVA Tenderness (R) Extremities: Normal Inspection, Normal Range of Motion, Non-Tender, No Pedal Edema Neurological: Alert, Oriented, Normal Cognition, No Motor/Sensory Deficits Psychiatric: Normal Affect, Normal Mood Skin Exam: Warm, Dry, Intact, Normal Color, No Rash Course - Vital Signs Last Recorded V/S: Last Vital Signs Temp Pulse 72 12/06/17 12:20 Resp 16 12/06/17 12:20 BP 140/70 12/06/17 12:25 Pulse Ox 99 12/06/17 12:20 - Orders/Labs/Meds Orders: Active Orders 24 hr Category Date Time Status Chest 2V [CR] Stat Exams 12/06/17 12:45 Ordered Labs: Laboratory Tests 12/06/17 12/06/17 12/06/17 Range/Units 13:55 13:55 13:55 WBC 6.2 (5.0-10.0) 10^3/uL RBC 4.91 (4.50-6.00) 10^6/uL Hgb 13.0 (13.0-17.0) g/dL Hct 40.6 (40.0-52.0) % MCV 82.6 (82.0-92.0) fL MCH 26.5 L (27.0-31.0) pg MCHC 32.1 (32.0-36.0) g/dL RDW 14.6 H (11.5-14.5) % Plt Count 224 (150-300) 10^3/uL MPV 7.5 (7.4-10.4) fL Neut % (Auto) 86.1 H (50.0-70.0) % Lymph % (Auto) 9.0 L (20.0-40.0) % [place] % (Auto) 3.9 (2.0-8.0) % Eos % (Auto) 0.2 L (1.0-3.0) % Baso % (Auto) 0.8 (0.0-1.0) % Neut # (Auto) 5.4 (2.5-7.0) 10^3/uL Lymph # (Auto) 0.6 L (1.0-4.0) 10^3/uL [place] # (Auto) 0.2 (0.1-0.8) 10^3/uL Eos # (Auto) 0.0 L (0.1-0.3) 10^3/uL Baso # (Auto) 0.0 (0.0-0.1) 10^3/uL PT 29.3 H (8.9-11.4) SEC INR 3.0 H (0.9-1.1) Sodium 144 (136-145) mmol/L Potassium 5.6 H (3.3-5.3) mmol/L Chloride 107 (98-115) mmol/L Carbon Dioxide 28.4 (21.0-32.0) mmol/L BUN 22 (6-25) mg/dL Creatinine 1.08 (0.51-1.17) mg/dL Est Cr Clr Drug Dosing 94.82 mL/min Estimated GFR (MDRD) > 60 mL/min Glucose 103 (70-110) mg/dL Calcium 9.3 (8.7-10.3) mg/dL Troponin I < 0.04 (0.00-0.070) ng/mL Meds: Medications Discontinued Medications Generic Name Dose Route Start Last Admin Trade Name Freq PRN Reason Stop Dose Admin Nitroglycerin 0.4 mg 12/06/17 12:46 12/06/17 12:25 Nitrostat SL 12/06/17 12:47 0.4 mg ONETIME ONE Administration - Re-Assessments/Exams Free Text/Narrative Re-Assessment/Exam: 12/06/17 14:08 Chest pain has not returned since the initial nitro. CXR shows a small left pleural effusion that was not present on chest CT 3 days ago. Labs are still pending as it was very difficult to get access. EKG is NSR without ST changes. Discussed findings with regulatory affairs assistant, Dr. Garcia at [facility] in [place] who advised transferring there to rule out shift or movement of the PFO closure device. Discussed findings and plan with patient who agrees. Patient has remained stable throughout ER course. 12/06/17 14:18 The hospitalist at [facility] that accepted is Dr. Farris. Departure - Departure Time of Disposition: 14:07 Disposition: DC/Tfer to Acute Hospital 02 Reason for Transfer *Q: Other Condition: Good Clinical Impression: Chest pain of uncertain etiology, S/P patent foramen ovale closure Referrals: Arabella Chan MD [Primary Care Provider] - - My Orders Last 24 Hours: My Active Orders 12/06/17 12:45 Chest 2V [CR] Stat - Assessment/Plan Last 24 Hours: My Active Orders 12/06/17 12:45 Chest 2V [CR] Stat
[2017-12-06 14:27] LABS: CHLORIDE,CL 107 mmol/L (98-115); SODIUM,NA 144 mmol/L (136-145)
[2017-12-06 14:56] VITALS: BP 122/72
== END 2017-12-06 16:18 ==
LOC: KA.ED 12:17
DX: R07.9 Chest pain, unspecified (principal); J45.909 Unspecified asthma, uncomplicated; K21.9 Gastro-esophageal reflux disease without esophagitis; Z88.1 Allergy status to other antibiotic agents; Z88.5 Allergy status to narcotic agent; Z88.2 Allergy status to sulfonamides; Z91.030 Bee allergy status; Z79.899 Other long term (current) drug therapy
CPT/HCPCS: 36415; 71046; 80048; 84484; 85025; 85610; 93005; 99285; A9270-GY

== ENCOUNTER 2018-03-31 15:19 | Emergency (ER) | payer OTHER ==
[2018-03-31] MEDS: Albuterol/Ipratropium 3.0-0.5 MG/3 ML Neb Soln NEB ONE (15:33)
[2018-03-31] MEDS: Albuterol/Ipratropium 3.0-0.5 MG/3 ML Neb Soln ONE (15:33)
[2018-03-31 15:35] VITALS: BP 140/79
--- NOTE | 2018-03-31 15:52 | EDM.PDOC ---
ED HPI GENERAL MEDICAL PROBLEM - General Chief Complaint: Respiratory Problem Stated Complaint: ASTHMA ATTACK Time Seen by Provider: 03/31/18 15:20 Source of Information: Reports: Patient History Limitations: Reports: No Limitations - History of Present Illness INITIAL COMMENTS - FREE TEXT/NARRATIVE: 37 YO WM presents to ER complaining of shortness of breath which began last night. Pt reports this is similar to when he's had asthma attacks in the past. Pt states he didn't use his rescue inhaler because he was told it could worsen his underlying atrial fibrillation. Pt denies any chest pain or palpitations. Pt reports he has an associated cough without congestion with his shortness of breath. Pt denies any recent illness or fever/chills. Pt denies any pedal edema. Onset Date: 03/30/18 Duration: Day(s): (2) Severity: Mild Improves with: Reports: Rest Worsens with: Reports: Breathing Associated Symptoms: Reports: Cough, Shortness of Breath. Denies: Chest Pain, cough w sputum, Diaphoresis, Fever/Chills, Nausea/Vomiting, Syncope - Related Data Allergies Allergy/AdvReac Type Severity Reaction Status Date / Time amoxicillin Allergy Anaphylactic Verified 03/31/18 15:40 Shock hydrocodone bitartrate Allergy Airway Verified 03/31/18 15:40 [From Lorcet (hydrocodone)] Tightness propoxyphene napsylate Allergy Airway Verified 03/31/18 15:40 [From Darvocet-N] Tightness rituximab [From Rituxan] Allergy Weakness Verified 03/31/18 15:40 Sulfa (Sulfonamide Allergy Anaphylactic Verified 03/31/18 15:40 Antibiotics) Shock venom-honey bee Allergy Airway Verified 03/31/18 15:40 [bee venom (honey bee)] Tightness Home Meds: Home Meds Fluticasone/Vilanterol [Breo Ellipta 200-25 Mcg INH] 1 puff INH DAILY 02/16/16 [ History] Prednisone [IJD: Prednisone] 10 mg PO WITHBREAKFAST 02/16/16 [History] azaTHIOprine [Imuran] 100 mg PO BID@0700,1700 02/16/16 [History] ARIPiprazole [Abilify] 5 mg PO DAILY 10/08/17 [History] Acetaminophen [Pain Reliever] 1,000 mg PO Q6H PRN 10/08/17 [History] Albuterol Sulfate [Proair Hfa] 2 puff PO Q4H PRN 10/08/17 [History] Albuterol [Proventil Neb Soln] 1 ampule PO QID PRN 10/08/17 [History] DULoxetine [Cymbalta] 120 mg PO DAILY 10/08/17 [History] EPINEPHrine [Epinephrine] 1 injection IM ONETIME PRN 10/08/17 [History] Furosemide [Lasix] 20 mg PO DAILY 10/08/17 [History] Magnesium Oxide 800 mg PO DAILY 10/08/17 [History] Minocycline [Minocin] 100 mg PO BID 10/08/17 [History] Multivitamin [Multivitamins] 1 tab PO DAILY 10/08/17 [History] Omeprazole 40 cap PO DAILY 10/08/17 [History] Potassium Chloride 20 meq PO DAILY 10/08/17 [History] Umeclidinium Kempner [Incruse Ellipta] 1 puff PO DAILY 10/08/17 [History] Clopidogrel [Plavix] 75 mg PO DAILY@1800 11/28/17 [History] Metoprolol Tartrate [Lopressor] 25 mg PO BID #60 tablet 12/01/17 [Rx] Warfarin [Coumadin] 7.5 mg PO SuMoTuThFrSa@1800 tablet 12/01/17 [Rx] Warfarin [Coumadin] 10 mg PO We@1800 tablet 12/01/17 [Rx] Past Medical History HEENT History: Reports: None Cardiovascular History: Reports: Blood Clots/VTE/DVT, Hypertension, Other (See Below) Other Cardiovascular History: clot 3 times in the left leg Respiratory History: Reports: Asthma, Sleep Apnea Gastrointestinal History: Reports: GERD Genitourinary History: Reports: None Musculoskeletal History: Reports: Arthritis, SLE Neurological History: Reports: Concussion, Head Trauma Psychiatric History: Reports: Depression, Panic Attack Endocrine/Metabolic History: Reports: None Hematologic History: Reports: Anticoagulation Therapy, Blood Transfusion(s) Immunologic History: Reports: SLE Oncologic (Cancer) History: Reports: None Dermatologic History: Reports: None - Infectious Disease History Infectious Disease History: Reports: Chicken Pox, Influenza, Pertussis ( Whooping Cough) - Past Surgical History Head Surgeries/Procedures: Reports: None HEENT Surgical History: Reports: None Cardiovascular Surgical History: Reports: None Respiratory Surgical History: Reports: None GI Surgical History: Reports: None Male Surgical History: Reports: None Endocrine Surgical History: Reports: None Musculoskeletal Surgical History: Reports: None Oncologic Surgical History: Reports: None Dermatological Surgical History: Reports: None Social & Family History - Family History Cardiac: Reports: Hypertension, [place] Musculoskeletal: Reports: SLE Other Musculoskeletal Family History: brother also has lupus - Caffeine Use Caffeine Use: Reports: Coffee, Energy Drinks, Soda ED ROS GENERAL - Review of Systems Review Of Systems: See Below HEENT: Reports: No Symptoms Respiratory: Reports: Shortness of Breath, Wheezing, Cough Cardiovascular: Reports: No Symptoms Endocrine: Reports: No Symptoms GI/Abdominal: Reports: No Symptoms : Reports: No Symptoms Musculoskeletal: Reports: No Symptoms Skin: Reports: No Symptoms Neurological: Reports: No Symptoms Psychiatric: Reports: No Symptoms Hematologic/Lymphatic: Reports: No Symptoms Immunologic: Reports: No Symptoms ED EXAM, GENERAL - Physical Exam Exam: See Below Exam Limited By: No Limitations General Appearance: Alert, WD/WN, No Apparent Distress Nose: Normal Inspection, Normal Mucosa, No Blood Throat/Mouth: Normal Inspection, Normal Lips, Normal Teeth, Normal Gums, Normal Oropharynx, Normal Voice, No Airway Compromise Head: Atraumatic, Normocephalic Neck: Normal Inspection, Supple, Non-Tender, Full Range of Motion Respiratory/Chest: No Respiratory Distress, No Accessory Muscle Use, Chest Non- Tender, Decreased Breath Sounds, Wheezing Cardiovascular: Normal Peripheral Pulses, Regular Rate, Rhythm, No Edema, No Gallop, No JVD, No Murmur, No Rub GI/Abdominal: Normal Bowel Sounds, Soft, Non-Tender, No Organomegaly, No Distention, No Abnormal Bruit, No Mass Back Exam: Normal Inspection, Full Range of Motion, NT Extremities: Normal Inspection, Normal Range of Motion, Non-Tender, Normal Capillary Refill, No Pedal Edema Neurological: Alert, Oriented, CN II-XII Intact, Normal Cognition, Normal Gait, Normal Reflexes, No Motor/Sensory Deficits Psychiatric: Normal Affect, Normal Mood Skin Exam: Warm, Dry, Intact, Normal Color, No Rash Lymphatic: No Adenopathy Course - Vital Signs Last Recorded V/S: Last Vital Signs Temp 36.9 C 03/31/18 15:33 Pulse 70 03/31/18 15:33 Resp 22 H 03/31/18 15:33 BP 140/79 03/31/18 15:33 Pulse Ox 97 03/31/18 15:33 - Orders/Labs/Meds Orders: Active Orders 24 hr Category Date Time Status EKG Documentation Completion [RC] ASDIRECTED Care 03/31/18 15:45 Active RT Aerosol Therapy [RC] ASDIRECTED Care 03/31/18 15:25 Active Chest 2V [CR] Stat Exams 03/31/18 15:44 Ordered EKG 12 Lead [EK] Routine Ther 03/31/18 15:44 Ordered Meds: Medications Discontinued Medications Generic Name Dose Route Start Last Admin Trade Name Vivek PRN Reason Stop Dose Admin Albuterol/Ipratropium 3 ml 03/31/18 15:25 03/31/18 15:33 Duoneb 3.0-0.5 Mg/3 Ml NEB 03/31/18 15:26 3 ml ONETIME ONE Administration Albuterol/Ipratropium Confirm 03/31/18 15:27 03/31/18 15:33 Duoneb 3.0-0.5 Mg/3 Ml Administered 03/31/18 15:28 Not Given Dose 3 ml .ROUTE .STK-MED ONE - Radiology Interpretation Free Text/Narrative:: CXR- NAD - Re-Assessments/Exams Free Text/Narrative Re-Assessment/Exam: 03/31/18 16:29 Pt reports symptoms relieved by duoneb treatment. Pt denies any chest pain or shortness of breath at this time. Departure - Departure Time of Disposition: 16:30 Disposition: Home, Self-Care 01 Condition: Good Clinical Impression: Acute asthma - Discharge Information Instructions: Asthma, Adult Referrals: Arabella Chan MD [Primary Care Provider] - Forms: ED Department Discharge - My Orders Last 24 Hours: My Active Orders 03/31/18 15:25 RT Aerosol Therapy [RC] ASDIRECTED 03/31/18 15:44 Chest 2V [CR] Stat EKG 12 Lead [EK] Routine 03/31/18 15:45 EKG Documentation Completion [RC] ASDIRECTED - Assessment/Plan Last 24 Hours: My Active Orders 03/31/18 15:25 RT Aerosol Therapy [RC] ASDIRECTED 03/31/18 15:44 Chest 2V [CR] Stat EKG 12 Lead [EK] Routine 03/31/18 15:45 EKG Documentation Completion [RC] ASDIRECTED
== END 2018-03-31 17:10 | disposition home or self-care (01) ==
LOC: KA.ED 15:19
DX: J45.901 Unspecified asthma with (acute) exacerbation (principal); Z88.1 Allergy status to other antibiotic agents; Z88.8 Allergy status to other drugs, medicaments and biological substances; Z88.2 Allergy status to sulfonamides; Z91.030 Bee allergy status; Z79.899 Other long term (current) drug therapy
CPT/HCPCS: 71046; 93005; 99285

== ENCOUNTER 2019-11-16 21:16 | Emergency (ER) | payer BC ==
[2019-11-16] MEDS ORDERED: Ketorolac 60 MG/2 ML SDV IM ONE (22:06)
[2019-11-16] MEDS ORDERED: Ketorolac 30 MG/ML SDV ONE (22:09)
[2019-11-16] MEDS ORDERED: Bupivacaine 0.5% 10 ML SDV INJECT ONE (22:33)
[2019-11-16] MEDS ORDERED: Bupivacaine 0.5% 10 ML SDV ONE (22:34)
--- NOTE | 2019-11-16 22:42 | EDM.PDOC ---
ED HPI GENERAL MEDICAL PROBLEM - General Chief Complaint: General Stated Complaint: toothache Time Seen by Provider: 11/16/19 21:30 Source of Information: Reports: Patient History Limitations: Reports: No Limitations - History of Present Illness INITIAL COMMENTS - FREE TEXT/NARRATIVE: 39-year-old male presents emergency room with complaints of severe left dental toothache pain. Patient reports root canal done in the past for his left lower jaw molar. This broke off about 6 months ago but going continues to decay. He's had this severe onset of pain today rated an 8 out of 10. He denies any fever or chills. He's been taken Tylenol and ibuprofen and naproxen. He comes in due to the pain and discomfort. No difficulty swallowing. He denies drooling. He denies difficulty with speech. He's not had any swelling in his face. Onset: Today Duration: Hour(s):, Constant Quality: Reports: Ache Severity: Severe Improves with: Reports: Medication Worsens with: Reports: None Associated Symptoms: Denies: Fever/Chills, Headaches Treatments [employer]: Reports: Acetaminophen, NSAIDS Tooth/Teeth Pain Score (Numeric/FACES): 8 - Related Data Allergies Allergy/AdvReac Type Severity Reaction Status Date / Time amoxicillin Allergy Severe Anaphylactic Verified 11/16/19 21:20 Shock clindamycin Allergy Severe Anaphylactic Verified 11/16/19 21:20 Shock hydrocodone Allergy Intermediate Bronchospas Verified 11/16/19 21:20 ms Sulfa (Sulfonamide Allergy Intermediate Bronchospas Verified 11/16/19 21:20 Antibiotics) ms propoxyphene Allergy Bronchospas Verified 11/16/19 21:20 ms Home Meds: Home Meds ARIPiprazole [Abilify] 15 mg PO 11/16/19 [History] DULoxetine HCl [Cymbalta] 120 mg PO 11/16/19 [History] Diltiazem HCl [Cardizem] 120 mg PO 11/16/19 [History] Doxycycline [Vibramycin] 50 mg PO DAILY #2 cap 11/16/19 [Rx] Doxycycline [Vibramycin] 50 mg PO DAILY #7 cap 11/16/19 [Rx] Metoprolol Succinate 50 mg 11/16/19 [History] Omeprazole 20 mg PO 11/16/19 [History] Warfarin Sodium [Coumadin] 5 mg PO 11/16/19 [History] Warfarin Sodium [Coumadin] 7.5 11/16/19 [History] azaTHIOprine [Imuran] 50 mg PO DAILY 11/16/19 [History] Past Medical History Cardiovascular History: Reports: Afib, Hypertension Respiratory History: Reports: Asthma Musculoskeletal History: Reports: Arthritis Neurological History: Reports: Concussion Psychiatric History: Reports: Depression Dermatologic History: Reports: Other (See Below) Other Dermatologic History: Lupus Rash - Past Surgical History HEENT Surgical History: Reports: Visual Other HEENT Surgeries/Procedures: Glasses Social & Family History - Tobacco Use Smoking Status *Q: Never Smoker Second Hand Smoke Exposure: No - Caffeine Use Caffeine Use: Reports: Coffee, Soda - Recreational Drug Use Recreational Drug Use: No ED ROS GENERAL - Review of Systems Review Of Systems: Comprehensive ROS is negative, except as noted in HPI. ED EXAM, GENERAL - Physical Exam Exam: See Below Exam Limited By: No Limitations General Appearance: Alert, WD/WN, No Apparent Distress Eye Exam: Bilateral Eye: PERRL Ears: Hearing Grossly Normal Throat/Mouth: Normal Voice, No Airway Compromise, Other (There is significant dental decay of the left mandible molar #19. No evidence. Dental abscess with inflammation surrounding the area of the molar.) Neck: Non-Tender, Full Range of Motion Respiratory/Chest: No Respiratory Distress, Lungs Clear Cardiovascular: Regular Rate, Rhythm ED GENERAL MEDICAL PROCEDURES - Additional/Other Procedure(s) Other (Free Text) Procedure(s): Dental anesthetic field block injected along the pubocervical surface of the affected tooth molar #19,bupivacaine long-acting anesthetic was used. Course - Vital Signs Last Recorded V/S: Last Vital Signs Temp 96.8 F L 11/16/19 21:26 Pulse 70 11/16/19 21:26 Resp 20 11/16/19 21:26 BP 152/101 H 11/16/19 21:26 Pulse Ox 96 11/16/19 21:26 - Orders/Labs/Meds Meds: Medications Discontinued Medications Generic Name Dose Route Start Last Admin Trade Name Freq PRN Reason Stop Dose Admin Bupivacaine HCl 10 ml 11/16/19 22:33 Sensorcaine-Mpf 0.5% INJECT 11/16/19 22:34 ONETIME ONE Doxycycline Hyclate 50 mg 11/16/19 22:15 11/16/19 22:31 Vibramycin PO 11/16/19 22:16 50 mg ONETIME ONE Administration Ketorolac Tromethamine 60 mg 11/16/19 22:06 11/16/19 22:11 Toradol IM 11/16/19 22:07 60 mg ONETIME ONE Administration Ketorolac Tromethamine Confirm 11/16/19 22:09 Toradol Administered 11/16/19 22:10 Dose 60 mg .ROUTE .[facility] ONE - Re-Assessments/Exams Free Text/Narrative Re-Assessment/Exam: 11/16/19 22:49 Patient reports complete relief of his pain with the buccal block. Departure - Departure Time of Disposition: 23:20 Disposition: Home, Self-Care 01 Condition: Good Clinical Impression: Dental infection - Discharge Information Prescriptions: Doxycycline [Vibramycin] 50 mg PO DAILY #7 cap Doxycycline [Vibramycin] 50 mg PO DAILY #2 cap Instructions: Dental Extraction, Dental Abscess, [id number] Sepsis Event Note - Evaluation Sepsis Screening Result: No Definite Risk - Focused Exam Vital Signs: Vital Signs Temp Pulse Resp BP Pulse Ox 11/16/19 21:26 96.8 F L 70 20 152/101 H 96 Date Exam was Performed: 11/16/19 Time Exam was Performed: 22:35 - Assessment/Plan Assessment:: Dental infection molar 19 Dental decay molar 19 Plan: 1. Doxycycline 50 mg daily for 7 days 2. Patient will be discharged with one additional doxycycline and was given doxycycline in the emergency room. Prescription was called into [facility]. 3. Follow-up with her dentist early next week for tooth extraction. 4. Tylenol extra strength thousand milligrams every 8 hours for pain.
[2019-11-16 23:14] VITALS: BP 156/94; PULSE 68
== END 2019-11-16 23:15 | disposition home or self-care (01) ==
LOC: KA.ED 21:16 → MERGE 21:16 → KA.ED 23:15
DX: K04.7 Periapical abscess without sinus (principal); I48.91 Unspecified atrial fibrillation; I10 Essential (primary) hypertension; J45.909 Unspecified asthma, uncomplicated; F32.9 Major depressive disorder, single episode, unspecified; Z88.1 Allergy status to other antibiotic agents; Z88.5 Allergy status to narcotic agent; Z88.2 Allergy status to sulfonamides; Z79.899 Other long term (current) drug therapy; Z79.01 Long term (current) use of anticoagulants
CPT/HCPCS: 64400; 96372; 99282; A9270; J1885; J3490

== ENCOUNTER 2020-04-12 14:45 | Emergency (ER) | payer BC ==
[2020-04-12] MEDS: Oxymetazoline 0.05% Nasal Spray 15 ML Bottle NASBOTH ONE (15:05)
[2020-04-12 15:10] VITALS: BP 134/73; PULSE 153
[2020-04-12] MEDS: Oxymetazoline 0.05% Nasal Spray 15 ML Bottle ONE (15:41)
[2020-04-12 16:00] LABS: PTT,PARTIAL THROMBOPLSTIN TIME 45.4 SEC (22.8-31.4)
[2020-04-12 16:11] LABS: ANION GAP 17.5 mmol/L (5-15); CHLORIDE,CL 102 mmol/L (98-115); SODIUM,NA 135 mmol/L (136-145)
[2020-04-12] MEDS ORDERED: Sodium Chloride 0.9% 10 ML Syringe FLUSH PRN (16:44)
[2020-04-12] MEDS: Sodium Chloride 0.9% 1,000 ML IV ONE (16:46)
--- NOTE | 2020-04-12 16:48 | EDM.PDOC ---
ED HPI GENERAL MEDICAL PROBLEM - General Chief Complaint: ENT Problem Stated Complaint: NOSE BLEEDS Time Seen by Provider: 04/12/20 15:28 Source of Information: Reports: Patient History Limitations: Reports: No Limitations - History of Present Illness INITIAL COMMENTS - FREE TEXT/NARRATIVE: Patient is a 39-year-old gentleman who presents to the emergency department this afternoon with a complaint of nosebleed. Patient states that he was recently released on 04/[address] [facility]. At that time he was diagnosed with atypical pneumonia, pancytopenia, and lupus. Patient did have epistaxis episodes during that hospital stay. Patient states this episode began about 6 hours ago. He is now bleeding out of both nostrils and has not resolved even with pressure. Patient also says he is very wiped out. Patient denies shortness of breath, chest pain, fever, covid exposure, nausea, vomiting, diarrhea, or any trauma. Onset: Today Duration: Hour(s): Location: Reports: Face Severity: Moderate Improves with: Reports: None Worsens with: Reports: None Context: Denies: Trauma Associated Symptoms: Reports: No Other Symptoms - Related Data Allergies Allergy/AdvReac Type Severity Reaction Status Date / Time clindamycin Allergy Severe Anaphylactic Verified 04/12/20 15:04 Shock hydrocodone Allergy Intermediate Bronchospas Verified 04/12/20 15:04 ms amoxicillin Allergy Anaphylactic Verified 04/12/20 15:04 Shock hydrocodone bitartrate Allergy Airway Verified 04/12/20 15:04 [From Lorcet (hydrocodone)] Tightness propoxyphene Allergy Bronchospas Verified 04/12/20 15:04 ms propoxyphene napsylate Allergy Airway Verified 04/12/20 15:04 [From Darvocet-N] Tightness rituximab [From Rituxan] Allergy Weakness Verified 04/12/20 15:04 Sulfa (Sulfonamide Allergy Anaphylactic Verified 04/12/20 15:04 Antibiotics) Shock venom-honey bee Allergy Airway Verified 04/12/20 15:04 [bee venom (honey bee)] Tightness Home Meds: Home Meds Prednisone [IJD: Prednisone] 10 mg PO WITHBREAKFAST 02/16/16 [History] azaTHIOprine [Imuran] 100 mg PO BID@0700,1700 02/16/16 [History] ARIPiprazole [Abilify] 5 mg PO DAILY 10/08/17 [History] Acetaminophen [Pain Reliever] 1,000 mg PO Q6H PRN 10/08/17 [History] DULoxetine [Cymbalta] 120 mg PO DAILY 10/08/17 [History] EPINEPHrine [Epinephrine] 1 injection IM ONETIME PRN 10/08/17 [History] Furosemide [Lasix] 20 mg PO DAILY 10/08/17 [History] Magnesium Oxide 800 mg PO DAILY 10/08/17 [History] Minocycline [Minocin] 100 mg PO BID 10/08/17 [History] Multivitamin [Multivitamins] 1 tab PO DAILY 10/08/17 [History] Omeprazole 40 cap PO DAILY 10/08/17 [History] Potassium Chloride 20 meq PO DAILY 10/08/17 [History] Metoprolol Tartrate [Lopressor] 25 mg PO BID #60 tablet 12/01/17 [Rx] Warfarin [Coumadin] 7.5 mg PO ASDIRECTED 03/31/18 [History] Warfarin [Coumadin] 10 mg PO ASDIRECTED 03/31/18 [History] ARIPiprazole [Abilify] 15 mg PO 11/16/19 [History] DULoxetine HCl [Cymbalta] 120 mg PO 11/16/19 [History] Doxycycline [Vibramycin] 50 mg PO DAILY #2 cap 11/16/19 [Rx] Doxycycline [Vibramycin] 50 mg PO DAILY #7 cap 11/16/19 [Rx] Metoprolol Succinate 50 mg 11/16/19 [History] Omeprazole 20 mg PO 11/16/19 [History] Warfarin Sodium [Coumadin] 5 mg PO 11/16/19 [History] Warfarin Sodium [Coumadin] 7.5 11/16/19 [History] azaTHIOprine [Imuran] 50 mg PO DAILY 11/16/19 [History] dilTIAZem HCL [Cardizem] 120 mg PO 11/16/19 [History] Past Medical History HEENT History: Reports: None Cardiovascular History: Reports: Afib, Blood Clots/VTE/DVT, Hypertension, Other (See Below) Other Cardiovascular History: clot 3 times in the left leg Respiratory History: Reports: Asthma, Sleep Apnea Gastrointestinal History: Reports: GERD Genitourinary History: Reports: None Musculoskeletal History: Reports: Arthritis, SLE Neurological History: Reports: Concussion, Head Trauma Psychiatric History: Reports: Depression, Panic Attack Endocrine/Metabolic History: Reports: None Hematologic History: Reports: Anticoagulation Therapy, Blood Transfusion(s) Immunologic History: Reports: SLE Oncologic (Cancer) History: Reports: None Dermatologic History: Reports: None, Other (See Below) Other Dermatologic History: Lupus Rash - Infectious Disease History Infectious Disease History: Reports: Chicken Pox, Influenza, Pertussis (Whooping Cough) - Past Surgical History HEENT Surgical History: Reports: None, Visual Social & Family History - Family History Cardiac: Reports: Hypertension, [place] Musculoskeletal: Reports: SLE Other Musculoskeletal Family History: brother also has lupus - Caffeine Use Caffeine Use: Reports: Coffee, Energy Drinks, Soda ED ROS ENT - Review of Systems Review Of Systems: See Below Constitutional: Reports: Weakness HEENT: Reports: Nosebleed Respiratory: Reports: No Symptoms Cardiovascular: Reports: No Symptoms Endocrine: Reports: No Symptoms GI/Abdominal: Reports: No Symptoms : Reports: No Symptoms Musculoskeletal: Reports: No Symptoms Skin: Reports: No Symptoms Neurological: Reports: No Symptoms Psychiatric: Reports: No Symptoms Hematologic/Lymphatic: Reports: No Symptoms Immunologic: Reports: No Symptoms ED EXAM, ENT - Physical Exam Exam: See Below Exam Limited By: No Limitations General Appearance: Alert, WD/WN, Mild Distress Eye Exam: Bilateral Eye: Normal Inspection Nose: Active Bleeding Mouth/Throat: Normal Inspection, Normal Oropharynx Head: Atraumatic, Normocephalic Neck: Normal Inspection Respiratory/Chest: No Respiratory Distress, Lungs Clear, Normal Breath Sounds, No Accessory Muscle Use, Chest Non-Tender Cardiovascular: Regular Rate, Rhythm, No Murmur GI/Abdominal: Normal Bowel Sounds, Soft, Non-Tender Extremities: Normal Inspection Neurological: Alert, Oriented, Normal Cognition Psychiatric: Normal Affect, Normal Mood Skin: Warm, Dry, Intact, Normal Color, No Rash Course - Vital Signs Last Recorded V/S: Last Vital Signs Temp 100.4 F 04/12/20 15:04 Pulse 153 H 04/12/20 15:04 Resp 22 H 04/12/20 15:04 BP 134/73 04/12/20 15:04 Pulse Ox 96 04/12/20 15:04 - Orders/Labs/Meds Orders: Active Orders 24 hr Category Date Time Status Peripheral IV Care [RC] . DIRECTED Care 04/12/20 16:44 Ordered Sodium Chloride 0.9% @ 999 MLS/HR (1000ml) Med 04/12/20 16:44 Ordered Sodium Chloride 0.9% [Normal Saline] 1,000 ml IV .BOLUS Sodium Chloride 0.9% [Saline Flush] Med 04/12/20 16:44 Ordered 10 ml FLUSH Q8HR PRN Peripheral IV Insertion Adult [OM.PC] Routine Oth 04/12/20 16:44 Ordered Medication Orders Sodium Chloride (Normal Saline) 1,000 mls @ 999 mls/hr IV .BOLUS ONE Stop: 04/12/20 17:44 Last Admin: 04/12/20 16:46 Dose: 999 mls/hr Documented by: LUIS Sodium Chloride (Saline Flush) 10 ml FLUSH Q8HR PRN PRN Reason: keep vein open Labs: Laboratory Tests 04/12/20 04/12/20 04/12/20 Range/Units 15:22 15:22 15:22 WBC 1.10 L* (5.00-10.00) 10^3/uL RBC 3.44 L (4.50-6.00) 10^6/uL Hgb 9.6 L (13.0-17.0) g/dL Hct 28.3 L (40.0-52.0) % MCV 82.3 (82.0-92.0) fL MCH 27.9 (27.0-31.0) pg MCHC 33.9 (32.0-36.0) g/dL RDW 16.3 H (11.5-14.5) % Plt Count 128 L (150-400) 10^3/uL MPV 10.9 H (7.4-10.4) fL Immature Gran % (Auto) 7.3 H (0.0-5.0) % Neut % (Auto) 57.3 (50.0-70.0) % Lymph % (Auto) 24.5 (20.0-40.0) % [place] % (Auto) 10.9 H (2.0-8.0) % Eos % (Auto) 0.0 L (1.0-3.0) % Baso % (Auto) 0.0 (0.0-1.0) % Neut # (Auto) 0.63 L (2.50-7.00) 10^3/uL Lymph # (Auto) 0.27 L (1.00-4.00) 10^3/uL [place] # (Auto) 0.12 (0.10-0.80) 10^3/uL Eos # (Auto) 0.00 L (0.10-0.30) 10^3/uL Baso # (Auto) 0.00 (0.00-0.10) 10^3/uL Immature Gran # (Auto) 0.08 (0.00-0.50) 10^3/uL WBC Morphology Comment See note PT 19.9 H (9.2-11.2) SEC INR 2.0 H (0.9-1.1) APTT 45.4 H (22.8-31.4) SEC Sodium 135 L (136-145) mmol/L Potassium 4.7 (3.3-5.3) mmol/L Chloride 102 (98-115) mmol/L Carbon Dioxide 20.2 L (21.0-32.0) mmol/L Anion Gap 17.5 H (5-15) mmol/L BUN 30 H (6-25) mg/dL Creatinine 0.94 (0.51-1.17) mg/dL Est Cr Clr Drug Dosing 113.51 mL/min Estimated GFR (MDRD) > 60 mL/min Glucose 120 H (75 - 99) mg/dL Calcium 7.1 L D (8.7-10.3) mg/dL Total Bilirubin 0.6 (0.2-1.0) mg/dL AST 169 H (15-37) U/L ALT 117 H (12-78) U/L Alkaline Phosphatase 96 (46-116) IU/L Total Protein 5.6 L (6.4-8.2) g/dL Albumin 2.00 L (3.00-4.80) g/dL Meds: Medications Generic Name Dose Route Start Last Admin Trade Name Freq PRN Reason Stop Dose Admin Sodium Chloride 1,000 mls @ 999 mls/hr 04/12/20 16:44 04/12/20 16:46 Normal Saline IV 04/12/20 17:44 999 mls/hr .BOLUS ONE Administration Sodium Chloride 10 ml 04/12/20 16:44 Saline Flush FLUSH Q8HR PRN keep vein open Discontinued Medications Generic Name Dose Route Start Last Admin Trade Name Freq PRN Reason Stop Dose Admin Oxymetazoline HCl Confirm 04/12/20 15:08 04/12/20 15:41 Afrin Original 0.05% Nasal [place] Administered 04/12/20 15:09 Not Given Dose 15 ml .ROUTE .STK-MED ONE Oxymetazoline HCl 2 ml 04/12/20 14:50 04/12/20 15:05 Afrin Original 0.05% Nasal [place] NASBOTH 04/12/20 14:51 2 spray ONETIME ONE Administration - Re-Assessments/Exams Free Text/Narrative Re-Assessment/Exam: 04/12/20 16:54 Patient afebrile, tachycardic at 140, Rhino Rocket placed in right nare, gauze in left nare. Bilateral Rhino Rockets were not placed due to possible complications. No change in lab values from 04/06, and patient hemodynamically stable. Bilateral nares currently hemostatic. Discussed case with Dr. Bill, emergency department at [facility] and patient was accepted for transfer via EMS ground ambulance. 04/12/20 16:57 Departure - Departure Time of Disposition: 16:56 Disposition: DC/Tfer to Acute Hospital 02 Condition: Fair Clinical Impression: Anterior epistaxis - Discharge Information Referrals: Ankur Patel, [employer]SE ORDER FILLER [Primary Care Provider] - Forms: ED Department Discharge Sepsis Event Note (ED) - Evaluation Sepsis Screening Result: Possible Sepsis Risk - Focused Exam Vital Signs: Vital Signs Temp Pulse Resp BP Pulse Ox 04/12/20 15:04 100.4 F 153 H 22 H 134/73 96 - My Orders Last 24 Hours: My Active Orders 04/12/20 16:44 Peripheral IV Care [RC] . DIRECTED Sodium Chloride 0.9% @ 999 MLS/HR (1000ml) Sodium Chloride 0.9% [Normal Saline] 1,000 ml IV .BOLUS Sodium Chloride 0.9% [Saline Flush] 10 ml FLUSH Q8HR PRN Peripheral IV Insertion Adult [OM.PC] Routine - Assessment/Plan Last 24 Hours: My Active Orders 04/12/20 16:44 Peripheral IV Care [RC] . DIRECTED Sodium Chloride 0.9% @ 999 MLS/HR (1000ml) Sodium Chloride 0.9% [Normal Saline] 1,000 ml IV .BOLUS Sodium Chloride 0.9% [Saline Flush] 10 ml FLUSH Q8HR PRN Peripheral IV Insertion Adult [OM.PC] Routine Assessment:: Epistaxis Plan: Transferred to [facility]
== END 2020-04-12 17:15 ==
LOC: KA.ED 14:45
DX: R04.0 Epistaxis (principal); I10 Essential (primary) hypertension; I48.91 Unspecified atrial fibrillation; J45.909 Unspecified asthma, uncomplicated; K21.9 Gastro-esophageal reflux disease without esophagitis; F32.9 Major depressive disorder, single episode, unspecified; Z86.718 Personal history of other venous thrombosis and embolism; R00.0 Tachycardia, unspecified; Z79.01 Long term (current) use of anticoagulants; Z88.1 Allergy status to other antibiotic agents; Z88.5 Allergy status to narcotic agent; Z88.2 Allergy status to sulfonamides; Z88.8 Allergy status to other drugs, medicaments and biological substances; Z91.030 Bee allergy status; Z79.899 Other long term (current) drug therapy
CPT/HCPCS: 30901; 30903; 36415; 80053; 85025; 85610; 85730; 99284; A9270; J7030